=== PATIENT | female | born 1965 | race Caucasian/White ===

== ENCOUNTER 2023-10-30 21:19 | Emergency (ER) | payer OTHER, SELFPAY ==
[2023-10-30 21:39] VITALS: BP 172/87; PULSE 74; RESP 16; TEMP 36.4; O2SAT 98; BMI 24.0
--- OUTSIDE RECORDS SUMMARY | 2023-10-31 01:19 | XMS_ITS | Continuity of Care Document ---
Author Organization [facility] ter Address [address] [place] [id number]- Care Team Providers Care Front Man Name Role Phone Not on Staff, PCP Primary Care Physician Unavail able Encounter [facility] Date(s): 09/24/22 - 10/27/[address] [address]- Encounter Diagnosis Non-ST elevation (NSTEMI) myocardial infarction(Final) - Discharge Disposition: A-D/C Home Attending Physician: Shyann Mancia MD Admitting Physician: Shyann Mancia MD Referring Physician: Shyann Mancia MD Allergies, Adverse Reactions, Alerts Substance Reaction Severity Status morphine Active Peanuts Active Immunizations Given and Recorded Vaccine Date Status Refusal Reason influenza virus vaccine, inactivated 08/24/22 Give n influenza virus vaccine, inactivated 03/15/15 Yordan rded influenza virus vaccine, inactivated 05/09/13 Yordan rded influenza virus vaccine, inactivated 02/26/12 Yordan rded influenza virus vaccine, inactivated 1 04/06/08 Gi kanchan SARS-CoV-2 (COVID-19) mRNA-1273 vaccine 12/10/21 R ecorded SARS-CoV-2 (COVID-19) mRNA-1273 vaccine 12/06/20 R ecorded SARS-CoV-2 (COVID-19) mRNA-1273 vaccine 11/08/20 R ecorded tetanus/diphtheria/pertussis, acel(Tdap) 10/10/12 Recorded tetanus/diphtheria/pertussis, acel(Tdap) 2 04/06/08 Given 1Admin Note: VIS 01/12/08 GIVEN admin by Dev Iniguez RN 2Admin Note: VIS 12/30/05 given admin by Dev Iniguez RN [employer] Medications Aldactone 25 mg oral tablet 12.5 mg, 0.5, tablet, By Mouth, Daily, # 15 tablet, Refills 2, Tot. Refills 2, Maintenance, 08/26/22 11:52:00 EST, Route to Pharmacy Electronically, [facility]/pharmacy #[id number], Partial fill upon patient request if the prescription is for a schedule II opioid... Start Date: 08/26/22 Status: Ordered losartan 25 mg oral tablet 1 tablet = 25 mg, By Mouth, Daily, # 30 tablet, 0 Refills, Maintenance, 08/26/22 12:03:00 EST, Tablet, Partial fill upon patient request if the prescription is for a schedule II opioid drug. Start Date: 08/26/22 Status: Ordered metoprolol 100 mg oral tablet, extended release 100 mg, 1, tablet, By Mouth, Daily, # 30 tablet, Refills 2, Tot. Refills 2, Maintenance, 08/25/22 10:55:00 EST, Route to Pharmacy Electronically, [facility]/pharmacy #[id number], Partial fill upon patient requestif the prescription is for a schedule II opioid cat... Start Date: 08/25/22 Status: Ordered Problem List Condition Confirmation Course Effective Dates Status Health St atus Informant Bilateral tubal ligation Confirmed Active Depression Confirmed Active Dyspepsia, h. pylori +, rxed 2007 Confirmed Active Graves' disease Confirmed Active Headache Confirmed Active Hypertension Confirmed Active Weight loss Confirmed Active Deprecated Cardiac rehabilitation treatment plan Progress note and attainment of goals (narrative) * Marixa Osullivan RN: PERFORM, SIGN, VERIFY Event Display: Cardiac Rehab Note Authored Date: [id number] Patient: DENI VIGIL Age: 57 years Sex: Female : 1965 Associated Diagnoses: None Author: Marixa Osullivan RN Pt has not returned to cardiac rehab since her initial orientation on 09/24/22. Attempted to reach pton 10/07/22, left voicemail with the assistance of language line requesting return call advising we would be discharging from program if we did not hear back from her. Pt has not returned to cardiac rehab nor returned our call, will DC at this time. * Baljit Bravo MD: SIGN Baljit Bravo MD: SIGN, MODIFY Baljit Bravo MD: MODIFY Shyann Mancia MD: REVIEW, SIGN, VERIFY Event Display: Cardiac Rehab Note Authored Date: [id number] Patient: DENI VIGIL Age: 57 years Sex: Female : 1965 Associated Diagnoses: None Author: Allyson Pendleton Initial Assessment Diagnosis: NSTEMI/Takotsubo CM EF: 30-35% Date of Event: 08/21/22 HPI: 57yo female presented to ER with CP and SOB while walking up the stairs at home. Pt went to ERhaving +troponins. Cath report showed no coronary disease. Other Medical Conditions/Comorbidities/Surgeries: Depression, Graves Disease, headaches, fibromyalgia Cardiac Risk Factors: HTN [employer]: Dr. Debbi Mancia ([facility]) PCP: [facility] Complete: Yes Med Compliant: Yes Beta Ricky: [employer] Allergies: Peanuts, Morphine Sternal Click: N/A Incisions C/D/I: N/A Pain: 0/10 Fall in Past 6 Months? No Physical Limitations: Fibromyalgia Cardiac Rhythm: NSR Lung Sounds: CTA Edema : 0 Diabetes: No Type: _ Insulin: _ FBS: _ Risk Stratification: High Non-Adherence Score: 7 Advanced Directive: No DNR: _ MOLST: _ In CIS: _ Adv Dir Form Given: No Other/Notes: _ Plan: 1. Pt. has been enrolled in phase 2 cardiac rehab in which she will attend 2- 3x/week. We will monitor pt's HR/Rhythm as well as BPs. Any abnormalities will be reported to MD. Goals for this patient will be to increase exercise time/intensity and decrease overall CV RFs. 2. Pt. will be advised to follow a mediterranean diet and to limit sodium to no more than 2200mgday. Pt will be encouraged to attend our educational lectures regarding heart healthy eating as well asto meet with our clinical registered nurse. Educated patient on staying compliant with lipid and blood pressure medications if prescribed. 3. Pt. will be informed of our behavioral health resources offered at cardiac rehab. Pt. PHQ9 was 12. We will reassess PHQ9 after 30days and inform PCP if needed. Initial Exercise Prescription: Frequency: 2 days per week Intensity (Initial MET Level/RPE): 2.14METs Types of Exercise: Treadmill, Rec bike, Nustep Time of Exercise: 10-15min per machine; 30-45min per session Progression: 40% Increase from 3rd session MET level We look forward to working with Deni. Please contact us at [phone] if you have any questionsor concerns. Thank you Time spent with patient: 112min * Baljit Bravo MD R: PERFORM Event Display: Cardiac Rehab Note Authored Date: I have reviewed the patient's history, physical exam, and medications and agree with the treatment plan and exercise prescription as outlined in cardiac rehabilitation staff members note. Note * Event Display: Cardiac Rehab Telemetry Report Authored Date: Patient Care team information Care Team Personnel Name: Moni Modi Position: S RN Supv Member Role: Primary Care Nurse Name: Not on Staff, PCP Position: [facility] Physician (General Medicine) Member Role: PCP Care Team Related Persons Name: DENNYS CORREA Address: home [address] [place] [address] Name: STEVEN BAGLEY Address: [place] [address] Name: RAFI ESPINOZA
--- OUTSIDE RECORDS SUMMARY | 2023-10-31 01:19 | XMS_ITS | Continuity of Care Document ---
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[employer] Name Role Phone Not on Staff, PCP Primary Care Physician Unavail able Encounter [facility] Date(s): 08/20/22 - 08/26/[address] [id number] Encounter Diagnosis NSTEMI (non-ST elevated myocardial infarction)(Final) - 08/20/22 Hypertension(Final) - 08/20/22 Chest pain(Final) - 08/20/22 Discharge Disposition: A-D/C Home Attending Physician: Benitez MASSEY, Felipe Ramirez Admitting Physician: Margareth Antoine MD Referring Physician: Not on Staff, Referring MD Allergies, Adverse Reactions, Alerts Substance Reaction [...] 08/26/22 11:52:00 EST, Route to Pharmacy Electronically, [facility]/pharmacy #[id number], Partial fill upon patient request if [...] 08/25/22 10:55:00 EST, Route to Pharmacy Electronically, [facility]/pharmacy #[id number], Partial fill upon patient requestif the prescription is for a schedule II opioid cat... Start Date: 08/25/22 Status: Ordered metoprolol 50 mg oral tablet, extended release 50 mg, XL Tablet, By Mouth, 08/26/22 9:00:00 EST Start Date: 08/26/22 Stop Date: 08/26/22 Status: Completed valsartan 40 mg oral tablet 40 mg, Tablet, By Mouth, 08/26/22 9:00:00 EST Start Date: 08/26/22 Stop Date: 08/26/22 Status: Completed Problem List Condition Confirmation Course Effective Dates Status [facility] atus Informant Bilateral tubal ligation Confirmed Active Depression Confirmed Active Dyspepsia, h. pylori +, rxed 2007 Confirmed Active Graves' disease Confirmed Active Headache Confirmed Active Hypertension Confirmed Active Weight loss Confirmed Active Results Radiology Reports * Exam Date Time Procedure Performing Provider Status 08/20/22 5:[address] Angio Abdomen Tania Garcia; Auth (Verified) Notes: (CT Angio Abdomen) Reason For Exam: Renal artery dissection suspected;Other: RESULT: CT Angio Abdomen EXAMINATION: CT Angio Chest, CT Angio Abdomen INDICATION: Hx of Present Illness: chest pain sob, initially on 10 L NRB. Lethargic and diaphoretic. Pain started around 1430. Pain radiates to back. Given 324 mg ASA; Reason: Aortic disease, nontraumatic; Clinical Question(s): Aortic Dissection TECHNIQUE: An initial noncontrast CT of the chest was performed. Spiral CTA of the chest and abdomen was performed after rapid IV contrast administration without cardiac gating triggered by an ESTRELLITA onthe aorta. Images are formatted in multiple planes using 2-D multiplanar and 3-D maximum intensity projection. Obliqued images through the aortic root were reconstructed. 90 cc of Omnipaque 300 was administered intravenously. Weight-based protocol using automatic tube modulation was used to optimize exposure parameters. CTDIvol Body: 8.13 mGy, DLP Body: 396 mGy*cm. COMPARISONS: None. ANGIOGRAPHIC FINDINGS: No aortic dissection or aneurysm. Normal three vessel arch without branch vessel stenosis. Pulmonary arteries are normal in caliber. No evidence of central pulmonary embolism on this study performed without dedicated technique. Abdominal aorta: No aortic aneurysm or dissection. Celiac axis: Patent. Superior mesenteric artery: Patent. Right renal artery: Patent. Appears mildly beaded, for example see series 605 image 578. Accessory right lower pole renal artery. Left renal artery: Patent. Appears mildly beaded, for example see series 605 image 588. Inferior mesenteric artery: Patent. Visualized iliac arteries: Patent. NON-ANGIOGRAPHIC FINDINGS: Information Management Manager View Findings, Lines and Tubes: None. Trachea and Airways: Patent without evidence of tracheal or endobronchial lesion. Lungs and Pleura: Mild left basilar atelectasis. No effusion or pneumothorax. Mediastinum and otoniel: No mass or hematoma. No mediastinal or hilar lymphadenopathy. No esophageal abnormality. Heart: Mild cardiomegaly. No pericardial effusion. Chest Wall Soft Tissues: Normal. Diaphragm : No significant abnormality. Liver: Normal. Gallbladder: Absent consistent with prior cholecystectomy. Bile ducts: No biliary ductal dilation. Spleen: Normal. Pancreas: Normal. Adrenal glands: 1 cm benign left adrenal adenoma, not requiring further imaging evaluation. Kidneys and ureters: No hydronephrosis, stones, or suspicious masses. Stomach, small bowel, and large bowel: Visualized stomach and bowel are normal. Peritoneum and retroperitoneum: No ascites or pneumoperitoneum. No omental or mesenteric lesions. Lymph nodes: No enlarged lymph nodes. Abdominal wall: Unremarkable. Bones: No acute abnormality. IMPRESSION: 1. No aortic aneurysm or dissection. 2. Mild cardiomegaly. 3. Benign 1 cm left adrenal adenoma. No further imaging evaluation is recommended but consider biochemical workup to assess functional status. 4. Beaded appearance of the renal arteries, suggestive of fibromuscular dysplasia. WSN: [id number] Ordering Physician: Dennys Elias Dictated By: Conrado Villatoro MD Dictated Date/Time: 08/20/22 6:20 pm Reviewed By: Conrado Villatoro MD Signed By: Conrado Villatoro MD Signed Date/Time: 08/20/22 6:20 pm Transcribed By: BRAULIO Transcribed Date/Time: 08/20/22 6:11 pm * Exam Date Time Procedure Performing Provider Status 08/20/22 5:[address] Angio Chest [facility]elle [facility] (Verified) Notes: (CT Angio Chest) Reason For Exam: Aortic disease, nontraumatic;Other: RESULT: CT Angio Chest EXAMINATION: CT Angio Chest, CT Angio Abdomen INDICATION: Hx of Present Illness: chest pain sob, initially on 10 L NRB. Lethargic and diaphoretic. Pain started around 1430. Pain radiates to back. Given 324 mg ASA; Reason: Aortic disease, nontraumatic; Clinical Question(s): Aortic Dissection TECHNIQUE: An initial noncontrast CT of the chest was performed. Spiral CTA of the chest and abdomen was performed after rapid IV contrast administration without cardiac gating triggered by an [facility] aorta. Images are formatted in multiple planes using 2-D multiplanar and 3-D maximum intensity projection. Obliqued images through the aortic root were reconstructed. 90 cc of Omnipaque 300 was administered intravenously. Weight-based protocol using automatic tube modulation was used to optimize exposure parameters. CTDIvol Body: 8.13 mGy, DLP Body: 396 mGy*cm. COMPARISONS: None. ANGIOGRAPHIC FINDINGS: No aortic dissection or aneurysm. Normal three vessel arch without branch vessel stenosis. Pulmonary arteries are normal in caliber. No evidence of central pulmonary embolism on this study performed without dedicated technique. Abdominal aorta: No aortic aneurysm or dissection. Celiac axis: Patent. Superior mesenteric artery: Patent. Right renal artery: Patent. Appears mildly beaded, for example see series 605 image 578. Accessory right lower pole renal artery. Left renal artery: Patent. Appears mildly beaded, for example see series 605 image 588. Inferior mesenteric artery: Patent. Visualized iliac arteries: Patent. NON-ANGIOGRAPHIC FINDINGS: Information Management Manager View Findings, Lines and Tubes: None. Trachea and Airways: Patent without evidence of tracheal or endobronchial lesion. Lungs and Pleura: Mild left basilar atelectasis. No effusion or pneumothorax. Mediastinum and otoniel: No mass or hematoma. No mediastinal or hilar lymphadenopathy. No esophageal abnormality. Heart: Mild cardiomegaly. No pericardial effusion. Chest Wall Soft Tissues: Normal. Diaphragm : No significant abnormality. Liver: Normal. Gallbladder: Absent consistent with prior cholecystectomy. Bile ducts: No biliary ductal dilation. Spleen: Normal. Pancreas: Normal. Adrenal glands: 1 cm benign left adrenal adenoma, not requiring further imaging evaluation. Kidneys and ureters: No hydronephrosis, stones, or suspicious masses. Stomach, small bowel, and large bowel: Visualized stomach and bowel are normal. Peritoneum and retroperitoneum: No ascites or pneumoperitoneum. No omental or mesenteric lesions. Lymph nodes: No enlarged lymph nodes. Abdominal wall: Unremarkable. Bones: No acute abnormality. IMPRESSION: 1. No aortic aneurysm or dissection. 2. Mild cardiomegaly. 3. Benign 1 cm left adrenal adenoma. No further imaging evaluation is recommended but consider biochemical workup to assess functional status. 4. Beaded appearance of the renal arteries, suggestive of fibromuscular dysplasia. WSN: [id number] Ordering Physician: Dennys Elias Dictated By: Conrado Villatoro MD Dictated Date/Time: 08/20/22 6:20 pm Reviewed By: Conrado Villatoro MD Signed By: Conrado Villatoro MD Signed Date/Time: 08/20/22 6:20 pm Transcribed By: BRAULIO Transcribed Date/Time: 08/20/22 6:11 pm * Exam Date Time Procedure Performing Provider Status 08/20/22 4:11 PM Chest Portable Awilda Sarmiento; Auth (Verified) Notes: (Chest Portable) Reason For Exam: Chest Pain;Other: RESULT: Chest Portable Chest Portable Hx of Present Illness: hest pain sob, initially on 10 L NRB.lethargic and diaohoretic. pains tartedaround 1430. pain radiates to back. given 324 mg ASA; Reason: Other:; Chest Pain; Clinical Question(s): Other: COMPARISON: 09/28/2009. FINDINGS: LINES AND TUBES: None. LUNGS AND PLEURA: Clear lungs. Normal pulmonary vascularity. No pleural effusion. No pneumothorax. HEART, MEDIASTINUM AND OTONIEL: Prominent cardiomediastinal silhouette which may be partly due to magnification. Normal mediastinal and hilar contour. BONES AND SOFT TISSUES: No acute abnormality. IMPRESSION: No definite acute cardiopulmonary disease is seen. WSN: [id number] Ordering Physician: Sandhya Ling Dictated By: Hank Mars MD, V Dictated Date/Time: 08/20/22 4:29 pm Reviewed By: Hank Mars MD, V Signed By: Hank Mars MD, V Signed Date/Time: 08/20/22 4:29 pm Transcribed By: BRAULIO Transcribed Date/Time: 08/20/22 4:28 pm Vital Signs Most recent to oldest [Reference Range]: 1 2 3 Height 155 cm (08/26/22 9:45 AM) 155 cm (08/26/22 2:17 AM) 155 cm (08/25/22 7:35 PM) Weight 56.5 kg (08/26/22 2:17 AM) 57.1 kg (08/25/22 1:57 AM) 55.8 kg (08/24/22 2:22 AM) Oxygen Saturation [94-100 %] 98 % (08/26/22 9:45 AM) 98 % (08/26/22 2:17 AM) 100 % (08/25/22 7:35 PM) Pulse Rate [55-90 bpm] 78 bpm (08/26/22 9:45 AM) 78 bpm (08/26/22 8:47 AM) 72 bpm (08/26/22 2:17 AM) Body Mass Index [18.5-24.99 kg/m2] 23.52 kg/m2 (08/26/22 2:17 AM) 23.77 kg/m2 (08/25/22 1:57 AM) 23.23 kg/m2 (08/24/22 2:22 AM) Blood Pressure [90-138/55-84 mm Hg] 138/84mm Hg (08/26/22 9:45 AM) 138/84mm Hg (08/26/22 8:47 AM) 138/84mm Hg (08/26/22 8:47 AM) Respiratory Rate [16-30 br/min] 18 br/min (08/26/22 9:45 AM) 18 br/min (08/25/22 3:09 PM) 18 br/min (08/25/22 7:59 AM) Temperature [96.8-100.4 DegF] 98.0 DegF (08/26/22 9:45 AM) 98.9 DegF (08/26/22 2:17 AM) 98.1 DegF (08/25/22 7:35 PM) Liters per Minute 10 L/min (08/20/22 3:40 PM) Mode of Delivery (Oxygen) Room air (08/26/22 9:45 AM) Room air (08/26/22 2:17 AM) Room air (08/25/22 7:35 PM) Blood pressure sites Arm, right (08/26/22 9:45 AM) Arm, right (08/26/22 2:17 AM) Arm, left (08/25/22 7:35 PM) Temperature Route Oral (08/26/22 9:45 AM) Oral (08/26/22 2:17 AM) Oral (08/25/22 7:35 PM) Dry Weight 55.3 kg (08/22/22 3:18 AM) Weight Obtained Via Bed scale (08/26/22 2:17 AM) Bed scale (08/25/22 1:57 AM) Bed scale (08/24/22 2:22 AM) Dry Weight Obtained Via Standing scale (08/22/22 3:18 AM) Note * Mary Colmenares RN: PERFORM Event Display: Discharge/Transfer Note Hospital Authored Date: [id number] Nursing Discharge Note Entered On: 08/26/2022 13:41 EST Performed On: 08/26/2022 13:41 EST by Mary Colmenares RN Nursing Discharge Note 2 Discharge Time : 08/26/2022 13:30 EST Discharge Level of Care at Discharge : Home/Skilled Nursing/Foster Care Patient Left Unit Via : Wheelchair Patient Accompanied Off Unit with : Significant other DC Instructions Provided & Signed by Pt : Yes Patient Understands D/C Instructions : Yes Patient Instructions Discharge Signed : Yes Discharge Comments : PIV removed. discharge edu provided. A/Ox4. Ambulatory upon leaving, left withall belongings. Did Pt have Specialty Bed or Wound Vac : No Darrian MORENO, Mary - 08/26/2022 13:41 EST * Benitez MASSEY, Felipe Ramirez: MODIFY, PERFORM, MODIFY Event Display: Discharge/Transfer Note Hospital Authored Date: [id number] Patient: ??DENI VIGIL ? Age:??57 Years?Sex:??Female?:??1965?? Patient Information Discharge Location: Primary Care Physician: Not on Staff, PCP Admit Date/Time: 08/20/22 22:51 Discharge Disposition Discharge Disposition: Home: No Services Discharge Diagnosis Non-ST segment elevation W[place] Family history of premature CAD Non-ischemic cardiomyopathy Hypertension Diarrhea _ Discharge Medications Losartan (losartan 25 mg oral tablet)?1?tab(s)?25?Milligram?By Mouth?Daily Metoprolol (metoprolol 100 mg oral tablet, extended release)?100?Milligram?1?tablet?By Mouth?Daily Spironolactone (Aldactone 25 mg oral tablet)?12.5?Milligram?0.5?tablet?By Mouth?Daily ? Quality Measures Chest Pain, AMI Quality Measures:?ACEI or ARB for LVSD:??Active Home Medication for ARB ?Beta-Chan Prescribed at Discharge:??Beta-Chan Prescibed ? Medications Started metoprolol valsartan spironolactone Medications Discontinued chlorthalidone Doses Changed None Allergies Allergies ?(Active and Proposed Allergies Only) morphine? (Severity: Unknown severity, Onset: Unknown) Peanuts? (Severity: Unknown severity, Onset: Unknown) ? Hospital Course Deni Vigil is an extremely pleasant 57-year-old female. She came in initially with complaints of chest pain, now waiting for cardiac cath. ?? Non-ST segment elevation WV Family history of premature CAD Non-ischemic cardiomyopathy Hypertension - Troponins??x 4 were trended and have peaked??at 1425. - Echo: EF 30-35% overall. The apex and apical lateral hutson are akinetic. Grade I diastolic dysfunction - Hemoglobin A1c 4.9, LDL 85 - Coronary angiogram on 08/24 showed normal LMCA, normal LAD, normal LCx and normal RCA. Above-mentioned finding indicates that patient most likely has nonischemic cardiomyopathy, most likely stress induced cardiomyopathy/Takotsubo cardiomyopathy. - Plan: Stopped??aspirin and atorvastatin as it is non ischemic cardiomyopathy On discharge, metoprolol XL 100 mg daily, valsartan 40 mg daily and spironolactone 12.5 mg daily Cardiology will consider starting Entresto and Farxiga as outpatient Low Na diet FU with cardiology as outpatient ?? Diarrhea: Improved - Patient stated that she has issues with diarrhea and rosacea before as well. - diarrhea improved today, the last one was on 07/28 around midnight. ?? Upon assessment today, she is doing well, denies any chest pain, palpitations or SOB. No leg swelling. Medications and plan of care explained to the patient and her daughter in detail prior to discharge. Objective . Physical Exam General Appearance: Adult female. NAD. Cardiovascular: RRR S1 and S2 heard with no M/R/G. Respiratory: ??Breath sounds clear to auscultation bilaterally. No wheezing or crackles. GI: Soft. Nontender and nondistended. BS are present. MS: ??No edema or erythema in the lower extremities. Neuro: ??No slurred speech. ??Patient seen moving their upper and lower extremities independently. Psych: Alert and oriented x3. Appropriate and pleasant. [facility] Patient Education Titles Valsartan Oral Tablet?? Spironolactone Oral Tablet?? Dapagliflozin Oral Tablet?? Losartan Oral Tablet?? Having Cardiac Catheterization?? Discharge Instructions for Cardiac Catheterization?? Diet-Cardiac?? Heart Failure: Tracking Your Weight?? My Heart Failure Symptoms Chart?? Heart Failure: Know Your Baselines?? Heart Failure Discharge Instructions for Heart Failure?? Dapagliflozin Oral Tablet?? Metoprolol Extended Release Oral Capsule?? Losartan Oral Tablet?? Takotsubo Cardiomyopathy?? Takotsubo Cardiomyopathy?? Follow-Up Appointments Added Follow Up ?Time Frame ?Comments PCP Not on Staff?Within two weeks Lien MASSEY, Willi Felton?2 months?Cardiology office will call youfor an appointment. [facility] Cardiac [facility]hab?09/24/2022 [phone] Patient Instructions You were treated at [facility] for ?? Chest Pain Heart Enzyme elevation - You had a procedure called cardiac catheterization and it showed you don't have significant coronary artery disease. 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 - You were started on medications to help improve your heart function: metoprolol XL 100 mg daily valsartan 40 mg daily spironolactone 12.5 mg daily - Please limit your salt intake to less than 2 grams per day. - Please limit your water intake to about 2 liters per day. - You need repeat heart ultrasound (echocardiogram) in about 3 months to reassess your heart function. - Please follow with cardiology as outpatient. Post Discharge Care Diet: Cardiac diet Activity: OOB as Sheila ??With Assistance ??Minimize activity of the hand on the side of the procedure Code Status: ?? Full Resuscitation Discharge ?08/26/22 11:54:00 EST Discharge Prescriptions ?ePrescribed, ??08/26/22 11:54:00 EST ?ePrescribed, ??08/25/22 14:05:00 EST Results Discharge Labs BLOOD COUNT & DIFF WBC 8.2 k/mm3 ()?? 08/26/2022 02:27 RBC 4.66 m/mm3 ()?? 08/26/2022 02:27 Hgb 13.1 Gm/dL ()?? 08/26/2022 02:27 Hct 41.6 % ()?? 08/26/2022 02:27 MCV 89.3 femtoliters ()?? 08/26/2022 02:27 MCH 28.1 pg ()?? 08/26/2022 02:27 MCHC 31.5 g/dL (Low)?? 08/26/2022 02:27 Platelet Count 201 k/mm3 ()?? 08/26/2022 02:27 RDW-SD 40.1 femtoliters ()?? 08/26/2022 02:27 MPV 11.7 femtoliters ()?? 08/26/2022 02:27 Nucleated RBC (Automated) 0.0 #/100 WBC'S ()?? 08/26/2022 02:27 Abs. NRBC 0.0 k/mm3 ()?? 08/26/2022 02:27 Abs. Neut 5.4 k/mm3 ()?? 08/26/2022 02:27 Abs. Lymph 1.7 k/mm3 ()?? 08/26/2022 02:27 Abs. Wolfe 0.8 k/mm3 ()?? 08/26/2022 02:27 Abs. Eo 0.2 k/mm3 ()?? 08/26/2022 02:27 Abs. Baso 0.0 k/mm3 ()?? 08/26/2022 02:27 Neut % 66.3 % ()?? 08/26/2022 02:27 Lymph % 20.7 % ()?? 08/26/2022 02:27 Wolfe % 9.4 % ()?? 08/26/2022 02:27 Eos % 2.8 % ()?? 08/26/2022 02:27 Baso % 0.4 % ()?? 08/26/2022 02:27 Imm Gran 0.4 % ()?? 08/26/2022 02:27 Abs. Imm Gran 0.0 k/mm3 ()?? 08/26/2022 02:27 ?? CARDIAC Nt-Probnp 114 pg/mL ()?? 08/20/2022 15:55 High Sensitivity Troponin (HSTnT) 1241 ng/L (Critical)?? 08/21/2022 01:18 ?? CHEM GENERAL Sodium 139 mmol/L ()?? 08/26/2022 02:27 Potassium 3.9 mmol/L ()?? 08/26/2022 02:27 Chloride 104 mmol/L ()?? 08/26/2022 02:27 Bicarbonate Level 24 mmol/L ()?? 08/26/2022 02:27 Anion Gap 11 ()?? 08/26/2022 02:27 Glucose Level 85 mg/dL ()?? 08/24/2022 01:30 Hemoglobin A1C (Monitoring) 4.9 % ()?? 08/21/2022 04:15 BUN 11 mg/dL ()?? 08/26/2022 02:27 Creatinine-Blood 0.7 mg/dL ()?? 08/26/2022 02:27 Estimated GFR Creatinine 101 ML/MIN/1.73 M2 ()?? 08/26/2022 02:27 Calcium 9.1 mg/dL ()?? 08/24/2022 01:30 Phosphorus 2.7 mg/dL ()?? 08/21/2022 04:15 Magnesium 1.9 mg/dL ()?? 08/26/2022 02:27 Protein, Total 6.1 Gm/dL (Low)?? 08/21/2022 04:15 Albumin 3.8 Gm/dL ()?? 08/21/2022 04:15 AG Ratio 1.7 ()?? 08/21/2022 04:15 Alkaline Phosphatase 87 units/L ()?? 08/21/2022 04:15 Lipase 36 units/L ()?? 08/20/2022 15:55 AST (SGOT) 60 units/L (High)?? 08/21/2022 04:15 ALT (SGPT) 29 units/L ()?? 08/21/2022 04:15 Bilirubin, Total 0.6 mg/dL ()?? 08/21/2022 04:15 Bilirubin, Direct <0.2 mg/dL ()?? 08/20/2022 15:55 Bilirubin, Indirect Direct bilirubin is less than the measureable limit. Therefore, indirect mg/dL ()?? 08/20/2022 15:55 Lactate 1.4 mmol/L ()?? 08/21/2022 04:15 ? ENDOCRINE/TUMOR MARKER Serum Qual NEGATIVE mIU/mL ()?? 08/20/2022 15:55 ? LIPID STUDIES Cholesterol 171 mg/dL ()?? 08/21/2022 04:15 Triglycerides 69 mg/dL ()?? 08/21/2022 04:15 HDL Cholesterol 72 mg/dL ()?? 08/21/2022 04:15 LDL Cholesterol 85 mg/dL ()?? 08/21/2022 04:15 Non HDL Cholesterol 99 mg/dL ()?? 08/21/2022 04:15 ? MISC. CHEMISTRY Hold Green Top SPECIMEN DISCARDED AFTER 1 WEEK ()?? 08/21/2022 07:39 Hold Gel Top SPECIMEN DISCARDED AFTER 1 WEEK ()?? 08/24/2022 09:31 ?? SEROLOGY INF DISEASE C.difficile Toxin Negative. C.Difficile bacterial antigen and toxin not detected. A (N)?? 08/25/2022 15:30 ? VIROLOGY COVID-19 by RT-PCR NEGATIVE ()?? 08/20/2022 21:06 COVID-19 PCR Specimen Source NASAL ()?? 08/24/2022 05:52 COVID-19 PCR Result NEGATIVE ()?? 08/24/2022 05:52 ? 33??minutes spent on discharge * Mary Colmenares RN: PERFORM Event Display: Patient Education/Instruction Authored Date: Inpatient Adult Discharge Instructions [address] [id number] Name: DENI VIGIL : 1965 Visit: 08/20/2022 22:51:00 Current Date: 08/26/2022 12:19 Account: [id number] Inpatient Adult Discharge Instructions We would like to thank you for allowing us to assist you with your healthcare needs. The following includes patient education materials and information regarding your injury/illness. Our entire staffstrives to provide an excellent experience for our patients and their families. PLEASE ENSURE YOU FOLLOW-UP PER THE INSTRUCTIONS BELOW! ?? YOUR OPINION IS IMPORTANT TO US! Please complete the survey you may receive by mail or email. Your feedback will be used to make improvements to the healthcare experiences of our patients and their families. Surveys are administered by [employer] ?? If further treatment with your primary care physician or another doctor is recommended, it is important for you to keep the appointment. Call your primary care physician or return to the Emergency Department immediately if your condition worsens, fails to improve, or new symptoms develop. If you need to find a doctor, you can call [facility] for a referral at [phone] or toll free at [phone] ([phone]) or log in to [email or web address] ?? You can view and manage your care through the patient portal or by using a health care eleanor of your choosing. [employer] is a website that allows you to securely view your medical information including your hospital discharge summary, office visit summaries, medications and follow-up visits. You can also request appointments, renew medications, and request access to your medical information using a health care eleanor of your choosing, or just ask a question. You can enroll at [email or web address] or register during your next office visit. You have been discharged from [facility], Patient Care Unit: M5. If you have any questions regarding these instructions after you leave, please call us and we will be happy to assist you. [facility] Your Care Team Attending Physician Benitez MASSEY, Felipe Ramirez Consulting Providers Lien MASSEY, Willi MALDONADO, Tyree Salas MD, Trav Mancia MD, Shyann Discharging Providers Benitez MASSEY, Felipe Ramirez Reason for Admission chest pain/sob, initially on 10 L NRB.lethargic and diaohoretic. pains tarted around 1430. pain radiates to back. given 324 mg ASA Your Diagnosis NSTEMI (non-ST elevated myocardial infarction) Hypertension Chest pain Tests Performed Below is a partial list of the tests performed during your hospitalization. You may have had other tests and procedures not included in this list. Please discuss all test results with your provider. B Type Natriuretic Peptide Basic Metabolic Panel BUN C. difficile Rapid Toxin Assay Cardiac Lipid Panel CBC CBC w/ Differential Comprehensive Metabolic Panel COVID-19 (2019 Novel Coronavirus) PCR COVID-19 (Novel Coronavirus), Rapid PCR Creatinine Electrolytes Hemoglobin A1C (Monitoring) HEPATIC FUNCTION PANEL High??Sensitivity??Troponin T Hold Blue Top Tube HOLD GEL TUBE HOLD GREEN TUBE HOLD LAVENDER TUBE Lactate Level LIPASE Magnesium Level Phosphorus Level Serum Qualitative PTT Troponin T, High Sensitivity CT Angio Abdomen CT Angio Chest XR Chest Portable Primary Care Provider Not on Staff, PCP Advance Directive Health Care Proxy on File Yes - Health Care Proxy Discharge Vitals Temperature: 98 DegF Height: 155 cm Pulse Rate: 78 bpm Weight: 56.5 kg Respiratory Rate: 18 br/min Body Mass Index: 23.52 kg/m2 Systolic Blood Pressure: 138 mm Hg Body surface area: 1.56 Diastolic Blood Pressure: 84 mm Hg ?? Oxygen Saturation: 98 % ?? Studies Pending All tests and labs ordered during this hospital stay have been completed unless listed below. Please discuss all pending results with your provider listed above in these instructions. ?? Add On Lab Order GI Profile, Stool, PCR Hold Gel Top Tube (HOLD GEL TUBE) What to do next Instructions From Your Doctor You were treated at [facility] for ?? Chest Pain Heart Enzyme elevation - You had a procedure called cardiac catheterization and it showed you don't have significant coronary artery disease. 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 - You were started on medications to help improve your heart function: metoprolol XL 100 mg daily losartan 25 mg daily spironolactone 12.5 mg daily - Please limit your salt intake to less than 2 grams per day. - Please limit your water intake to about 2 liters per day. - You need repeat heart ultrasound (echocardiogram) in about 3 months to reassess your heart function. - Please follow with cardiology as outpatient. Discharge Orders Diet:??Cardiac diet Activity:??OOB as Sheila With Assistance Minimize activity of the hand on the side of the procedure Code Status:?? Full Resuscitation You Need to Schedule the Following Appointments Follow Up with??[facility] Cardiac Rehab When??09/24/2022 10:30 AM EDT Why: [phone] Where: [address] [facility], [address] [place], [place] Follow Up with??PCP Not on Staff When??Within Within two weeks Where: Follow Up with??Lien MASSEY, Willi Felton When??Within 2 months Why: Cardiology office will call you for an appointment. Where: [address] [place] [address] Drive [address] [facility] [place] [address]- Discharge Medications DENI VIGIL :1965 Visit Date:08/20/2022 Medications: Please continue your medications until treatment is completed or stopped by your provider. Medications not listed below should be discontinued. Discuss any questions related to medications with your provider. What How Much When Instructions Next Dose New Spironolactone (Aldactone 25 mg oral tablet) 0.5 tab(s) Oral Daily Refills: 2 Pickup at [facility]/pharmacy #[id number] 08/27 9a Changed Metoprolol (metoprolol 100 mg oral tablet, extended release) 1 tab(s) Oral Daily Pickup at [facility]/pharmacy #[id number] 08/27 9a Unchanged Losartan (losartan 25 mg oral tablet) 1 tab(s) Oral Daily 08/27 Pharmacy Information [facility]/pharmacy #[id number]: [address], [place] [phone] ?? What How Much When Comments Stop Taking Chlorthalidone (chlorthalidone 50 mg oral tablet) 1 tab(s) Oral Daily Stop Taking Ibuprofen (ibuprofen 600 mg oral tablet) 1 tab(s) Oral 3 times a day as needed for Pain , Moderate Duration: 5 Days Temperature Greater than 100.5 ?? Stop Taking Omeprazole (omeprazole 10 mg oral enteric coated capsule) 1 capsule Oral Daily Test Results Below is a partial list of the most recent Laboratory test results done prior to this discharge. You may have had other tests and procedures not included in this list. Please discuss all test resultswith your provider. B Type Natriuretic Peptide (08/20/2022) ???Nt-Probnp - 114 pg/mL Basic Metabolic Panel (08/24/2022) ???Sodium - 140 mmol/L???Potassium - 3.8 mmol/L???Chloride - 104 mmol/L???Bicarbonate Level - 27 mmol/L???Anion Gap - 9???Glucose Level - 85 mg/dL???BUN - 16 mg/dL???Creatinine-Blood - 0.7 mg/dL???Estimated GFR Creatinine - 101 ML/MIN/1.73 M2???Calcium - 9.1 mg/dL BUN (08/26/2022) ???BUN - 11 mg/dL C. difficile Rapid Toxin Assay (08/25/2022) ???C.difficile Toxin - Negative. C.Difficile bacterial antigen and toxin not detected. A Cardiac Lipid Panel (08/21/2022) ???Cholesterol - 171 mg/dL???Triglycerides - 69 mg/dL???HDL Cholesterol - 72 mg/dL???LDL Cholesterol - 85 mg/dL???Non HDL Cholesterol - 99 mg/dL CBC (08/25/2022) ???WBC - 8.5 k/mm3???RBC - 4.37 m/mm3???Hgb - 12.3 Gm/dL???Hct - 39.0 %???MCV - 89.2 femtoliters???MCH - 28.1 pg???MCHC - 31.5 g/dL???Platelet Count - 193 k/mm3???RDW-SD - 39.6 femtoliters???MPV - 11.7 femtoliters???Nucleated RBC (Automated) - 0.0 #/100 WBC'S???Abs. NRBC - 0.0 k/mm3 CBC w/ Differential (08/26/2022) ???WBC - 8.2 k/mm3???RBC - 4.66 m/mm3???Hgb - 13.1 Gm/dL???Hct - 41.6 %???MCV - 89.3 femtoliters???MCH - 28.1 pg???MCHC - 31.5 g/dL???Platelet Count - 201 k/mm3???RDW-SD - 40.1 femtoliters???MPV - 11.7 femtoliters???Nucleated RBC (Automated) - 0.0 #/100 WBC'S???Abs. NRBC - 0.0 k/mm3???Abs. Neut - 5.4 k/mm3???Abs. Lymph - 1.7 k/mm3???Abs. Wolfe - 0.8 k/mm3???Abs. Eo - 0.2 k/mm3???Abs. Baso - 0.0 k/mm3???Neut % - 66.3 %???Lymph % - 20.7 %???Wolfe % - 9.4 %???Eos % - 2.8 %???Baso % - 0.4 %???Imm Gran - 0.4 %???Abs. Imm Gran - 0.0 k/mm3 Comprehensive Metabolic Panel (08/21/2022) ???Sodium - 140 mmol/L???Potassium - 4.3 mmol/L???Chloride - 106 mmol/L???Bicarbonate Level - 23 mmol/L???Anion Gap - 11???Glucose Level - 103 mg/dL???BUN - 10 mg/dL???Creatinine-Blood - 0.5 mg/dL???Estimated GFR Creatinine - 107 ML/MIN/1.73 M2???Calcium - 9.3 mg/dL???Protein, Total - 6.1 Gm/dL???Al bumin - 3.8 Gm/dL???AG Ratio - 1.7???Alkaline Phosphatase - 87 units/L???AST (SGOT) - 60 units/L???ALT (SGPT) - 29 units/L???Bilirubin, Total - 0.6 mg/dL COVID-19 (2019 Novel Coronavirus) PCR (08/24/2022) ???COVID-19 PCR Specimen Source - NASAL???COVID-19 PCR Result - NEGATIVE COVID-19 (Novel Coronavirus), Rapid PCR (08/20/2022) ???COVID-19 by RT-PCR - NEGATIVE Creatinine (08/26/2022) ???Creatinine-Blood - 0.7 mg/dL???Estimated GFR Creatinine - 101 ML/MIN/1.73 M2 Electrolytes (08/26/2022) ???Sodium - 139 mmol/L???Potassium - 3.9 mmol/L???Chloride - 104 mmol/L???Bicarbonate Level - 24 mmol/L???Anion Gap - 11 Hemoglobin A1C (Monitoring) (08/21/2022) ???Hemoglobin A1C (Monitoring) - 4.9 % HEPATIC FUNCTION PANEL (08/20/2022) ???Protein, Total - 6.7 Gm/dL???Albumin - 4.2 Gm/dL???Alkaline Phosphatase - 93 units/L???AST (SGOT) - 29 units/L? ?ALT (SGPT) - 27 units/L? ?Bilirubin, Total - 0.5 mg/dL? ?Bilirubin, Direct - <0.2 mg/dL???Bilirubin, Indirect - Direct bilirubin is less than the measureable limit. Therefore, indirect High??Sensitivity??Troponin T (08/21/2022) ???High Sensitivity Troponin (HSTnT) - 1241 ng/L Hold Blue Top Tube (08/20/2022) ???Hold Blue Top - SPECIMEN DISCARDED AFTER 4 HOURS. HOLD GEL TUBE (08/24/2022) ???Hold Gel Top - SPECIMEN DISCARDED AFTER 1 WEEK HOLD GREEN TUBE (08/21/2022) ???Hold Green Top - SPECIMEN DISCARDED AFTER 1 WEEK HOLD LAVENDER TUBE (08/20/2022) ???Hold Lavender Top - SPECIMEN DISCARDED AFTER 24 HOURS. Lactate Level (08/21/2022) ???Lactate - 1.4 mmol/L LIPASE (08/20/2022) ???Lipase - 36 units/L Magnesium Level (08/26/2022) ???Magnesium - 1.9 mg/dL Phosphorus Level (08/21/2022) ???Phosphorus - 2.7 mg/dL Serum Qualitative (08/20/2022) ??? Serum Qual - NEGATIVE PTT (08/24/2022) ???APTT - 96.8 seconds Troponin T, High Sensitivity (08/20/2022) ???High Sensitivity Troponin (HSTnT) - 1405 ng/L Immunizations This Visit Given Vaccine Dateinfluenza virus vaccine, inactivated 08/24/2022 Allergies (NKA means No Known Allergies) Peanuts morphine Problems Active Problems??(7) Bilateral tubal ligation?? Depression?? Dyspepsia, h. pylori +, rxed 2007?? Graves' disease?? Headache?? Hypertension?? Weight loss?? Education Materials Below is the list of Educational Leaflet Providered with your Discharge Instructions. Valsartan Oral Tablet?? Spironolactone Oral Tablet?? Dapagliflozin Oral Tablet?? Losartan Oral Tablet?? Having Cardiac Catheterization?? Discharge Instructions for Cardiac Catheterization?? Diet-Cardiac?? Heart Failure: Tracking Your Weight?? My Heart Failure Symptoms Chart?? Heart Failure: Know Your Baselines?? Heart Failure Discharge Instructions for Heart Failure?? Dapagliflozin Oral Tablet?? Metoprolol Extended Release Oral Capsule?? Losartan Oral Tablet?? Takotsubo Cardiomyopathy?? Takotsubo Cardiomyopathy?? Valuables and Belongings I fully understand and agree that [facility] accepts no responsibility for all my personal property including clothing, toilet articles, radios, jewelry, dentures, hearing aids, rings, money, or any other property that is in my possession or is brought to me after admission. I understand certain valuables may be placed in a hospital safe for a short period of time. I understand that the hospital is not liable for loss or damage due to accident, fire, or other natural occurrence while said property is in the safe. I accept full responsibility for any personal property that I keep with me, and will not hold the hospital responsible in case of loss or disappearance. I acknowledge that i have been encouraged to send valuables and belongings home. ?? No Valuables/Belongings: No valuables/belongings present Review of Valuable and Belonging List: With patient Date for Pt to Sign Valuables/Belongings: 08/22/22 03:34:00 ?? Other Discharge Information ? Pulmonary Rehab Status?? Pulmonary Rehab Discharge Status?? Respiratory Rate: 18 br/min ? Cardiac Rehab Assessment?? Cardiac Rehab Inpatient Assessment?? Comments-Education: Marko BAILEY Comments-Exercise Activity: home activity, phase 2 referral Patient attending Phase II: Yes Phase II Site of Care: [address] [phone] Common Emergency Awareness Tips IS IT A STROKE? Act FAST and Check for these signs: FACE Does the face look uneven? ARM Does one arm drift down? SPEECH Does their speech sound strange? TIME Call at any sign of stroke ?? Heart Attack Signs Chest discomfort: Most heart attacks involve discomfort in the center of the chest and lasts more than a few minutes, or goes away and comes back. It can feel like uncomfortable pressure, squeezing, fullness or pain. Discomfort in upper body: Symptoms can include pain or discomfort in one or both arms, back, neck, jaw or stomach. Shortness of breath: With or without discomfort. Other signs: Breaking out in a cold sweat, nausea, or lightheaded. Remember, MINUTES DO MATTER. If you experience any of these heart attack warning signs, call to get immediate medical attention! ?? Smoking can increase your chances of developing chronic health problems and can cause harmful effects to other family members in your house. If you smoke, you are strongly encouraged to quit. Please call [facility] at [phone] or [phone] ([phone]) or log in to [email or web address] for referrals to smoking cessation programs. ?? The National Suicide Prevention Hotline is available 11/01 if you or someone you know needs to find a reason to keep living. By calling 0-350-687-TNT Crowd (7595) you'll be connected to a skilled, trained counselor at a crisis center in your area. INPATIENT DISCHARGE INSTRUCTIONS SIGNATURE PAGE DENI VIGIL Location:[facility] Registration Date and Time:08/20/2022 22:51 EST Primary Care Physician: Not on Staff, PCP I VIGILJAY GRAHAMN, have received the above patient education materials/instructions and have verbalized understanding. If ambulance or transport services are being used I further acknowledge being given a choice of service. ?? If you need to contact me, please call me at this number: . Patient/Teacher Counselor Name: Patient/Teacher Counselor Signature: Relationship to Patient: Witness Name/Signature: Date: * Mary Colmenraes RN: PERFORM Event Display: Patient Education Leaflets Authored Date: [id number] Metoprolol Extended Release Oral Tablet ?? [id number] Metoprolol Extended Release Oral Tablet Brands: Toprol Usos Hyun medicamento se usa para las siguientes afecciones: ??? ataque card??aco ??? angina ??? insuficiencia card??nancy ??? lacho presi??n arterial ??? prevenir migra??as ??? latidos card??acos irregulares ??? trastorno del movimiento ?? Instrucciones Trague el medicamento sin aplastarlo o masticarlo. Hyun medicamento se puede wandy con o sin alimentos. Es muy importante que se tome hyun medicamento cerca de la misma hora todos los d??as. Obtendr?? mejores resultados si lo hace as??. Mantenga el medicamento a temperatura ambiente, alejado lin y el calor. Es importante que contin??e tomando todas las dosis de hyun medicamento a la hora indicada aunque se sienta yovani. Si olvida wandy ananda dosis a tiempo, t??giselle davies pronto lo recuerde. Si es kim la hora de la dosis siguiente, no tome la dosis olvidada. Vuelva al horario normal. No tome dos dosis al mismo tiempo. Las interacciones con otros medicamentos pueden cambiar la forma en que act??an los medicamentos o aumentar el riesgo de presentar efectos secundarios. Informe a cristofer profesionales sanitarios acerca de todos los medicamentos que usa. [place] incluye medicamentos con y sin receta m??dica, vitaminas y medicamentos a base de hierbas. Hable con smith m??dico o farmac??utico antes de empezar o dejar de usar cualquier medicamento. Hyun medicamento puede ocasionar un nivel bajo de az??car en chandrakant. Consuma comidas regularmente yhaga ejercicio seg??n las indicaciones de smith m??dico. Informe a smith m??dico si tiene s??ntomas de nivel bajo de az??car en chandrakant, por ejemplo n??useas, sudoraci??n, piel fr??a, ritmo card??aco acelerado, hambre e irritabilidad. Si tiene diabetes, hyun medicamento puede ocultar algunos de los signos de bajo nivel de az??car enla chandrakant, akrl latidos r??pidos del coraz??n. Controle cristofer niveles de az??car en la chandrakant regularmente y est?? atento a otros signos de bajo nivel de az??car en la chandrakant. ?? Precauciones Informe a smith m??dico y a smith farmac??utico si alguna vez crook tenido ananda reacci??n al??rgica a un medicamento. En algunos pacientes con corazones d??maritza los s??ntomas podr??an empeorar. Si tiene problemas para respirar, aumenta de peso, o se le hinchan las piernas o los tobillos, informe a smith m??dico de inmediato. No use el medicamento m??s veces de lo indicado. Hyun medicamento puede causar mareos o desmayo, sobre todo despu??s de hacer ejercicio o en clima c??lido. Tenga cuidado cuando se pare o se siente con rapidez. Hyun medicamento puede afectar smith capacidad de mantenerse alerta o de reaccionar con rapidez. No maneje ni opere m??quinas hasta que sepa qu?? efecto le provocar?? hyun medicamento. Consulte a msith m??dico antes de beber alcohol mientras usa hyun medicamento. Informe a smith m??dico o farmac??utico si est?? o planea quedar embarazada, o si est?? amamantando. No comparta hyun medicamento con otras personas a quienes no se les recet??. ?? Efectos Secundarios La siguiente es ananda lista de algunos efectos secundarios comunes de hyun medicamento. Hable con el m??dico para saber qu?? debe hacer en annalise de tener estos u otros efectos secundarios. ??? diarrea ??? mareos o aturdimiento ??? falta de energ??a y cansancio ??? latidos lentos del coraz??n ??? baja presi??n arterial Llame al m??dico u obtenga atenci??n m??dica de inmediato si nota cualquiera de estos efectos secundarios m??s graves: ??? confusi??n ??? depresi??n o sentimiento de tristeza ??? desmayo ??? palidez o coloraci??n lewis de la piel, los labios o las u??as ??? falta de aliento ??? cansancio o debilidad, extra??o o sin causa aparente ??? aumento de peso repentino o inexplicado Algunas personas podr??an tener reacciones al??rgicas a hyun medicamento. Entre los s??ntomas pueden incluirse: dificultad para respirar, erupci??n en la piel, comez??n, hinchaz??n o mareos intensos.Si nota algunos de estos s??ntomas, busque asistencia m??dica r??pidamente. ?? Extra Hable con smith m??dico, enfermero o farmac??utico si tiene alguna pregunta acerca de hyun medicamento. ?? [email or web address] NOTA IMPORTANTE: En hyun documento hay ananda explicaci??n breve sobre c??mo usar el medicamento, perono incluye todo lo que hay que saber acerca del medicamento. Smith m??dico o smith farmac??utico podr??a suministrarle otros documentos acerca de smith medicamento. Comun??quese con ellos si tiene alguna pregunta. Siga siempre cristofer consejos. Ananda descripci??n m??s completa de hyun medicamento est?? disponibleen ingl??s. [place] hyun c??digo en smith tel??fono inteligente o en smith tableta, o use la direcci??n web que aparece a continuaci??n. Tambi??n puede pedirle a smith farmac??utico ananda copia impresa. Si tiene alguna pregunta, h??gasela a smith farmac??utico. La exhibici??n y el uso de esta informaci??n sobre f??rmacos est?? sujeta a los T??rminos de Uso. Copyright(c) 2022 [employer]. ?? [id number] [employer]. All rights reserved. This information is not intended as a substitute for professional medical care. Always follow your healthcare professional's instructions. ?? * Felipe Marquis MD: PERFORM Event Display: Patient Education Leaflets Authored Date: [id number] Valsartan Oral Tablet ?? [id number] Valsartan Oral Tablet Brands: Diovan Usos Hyun medicamento se usa para las siguientes afecciones: ??? insuficiencia card??nancy ??? lacho presi??n arterial ??? complicaciones de la diabetes ?? Instrucciones Hyun medicamento se puede wandy con o sin alimentos. Es muy importante que se tome hyun medicamento cerca de la misma hora todos los d??as. Obtendr?? mejores resultados si lo hace as??. Mantenga el medicamento a temperatura ambiente, alejado lin y el calor. Hable con smith m??dico antes de consumir alimentos con grandes cantidades de potasio. El potasio a menudo se encuentra en substitutos de la heather. Es posible que smith m??dico quiera que usted reduzca la cantidad que consume de estos alimentos. Es importante que contin??e tomando todas las dosis de hyun medicamento a la hora indicada aunque se sienta yovani. Si olvida wandy ananda dosis a tiempo, t??giselle davies pronto lo recuerde. Si es kim la hora de la dosis siguiente, no tome la dosis olvidada. Vuelva al horario normal. No tome dos dosis al mismo tiempo. Informe a smith m??dico y a smith farmac??utico acerca de todos los medicamentos que usa. [place] incluye medicamentos con y sin receta m??dica, vitaminas y medicamentos a base de hierbas. ?? Precauciones Informe a smith m??dico y a smith farmac??utico si alguna vez crook tenido ananda reacci??n al??rgica a un medicamento. No use el medicamento m??s veces de lo indicado. Hyun medicamento puede causar mareos o desmayo, sobre todo despu??s de hacer ejercicio o en clima c??lido. Tenga cuidado cuando se pare o se siente con rapidez. Hyun medicamento puede afectar smith capacidad de mantenerse alerta o de reaccionar con rapidez. No maneje ni opere m??quinas hasta que sepa qu?? efecto le provocar?? hyun medicamento. Consulte a smith m??dico antes de beber alcohol mientras usa hyun medicamento. Llame al m??dico si observa alg??n cambio en la cantidad de orina o si ??sta es oscura. Se desconoce si hyun medicamento pasa a la leche materna. Consulte a smith m??dico antes de amamantar. Hyun medicamento puede causar da??os a un beb?? en el ??tero. Si queda embarazada mientras usa estemedicamento, av??luna a smith m??dico de inmediato. El m??dico puede cambiar el medicamento por otro diferente. Llame al m??dico de inmediato si se le hinchan las chemo, la gabriele, los labios, los ojos, la garganta o la lengua. No empiece ni deje de wandy otros medicamentos sin hablar inocencio con el m??dico o farmac??utico. No comparta hyun medicamento con otras personas a quienes no se les recet??. ?? Efectos Secundarios La siguiente es ananda lista de algunos efectos secundarios comunes de hyun medicamento. Hable con el m??dico para saber qu?? debe hacer en annalise de tener estos u otros efectos secundarios. ??? mareos Llame al m??dico u obtenga atenci??n m??dica de inmediato si nota cualquiera de estos efectos secundarios m??s graves: ??? hinchaz??n de la gabriele, lengua o garganta ??? baja presi??n arterial Algunas personas podr??an tener reacciones al??rgicas a hyun medicamento. Entre los s??ntomas pueden incluirse: dificultad para respirar, erupci??n en la piel, comez??n, hinchaz??n o mareos intensos.Si nota algunos de estos s??ntomas, busque asistencia m??dica r??pidamente. ?? Extra Hable con smith m??dico, enfermero o farmac??utico si tiene alguna pregunta acerca de hyun medicamento. ?? [email or web address] NOTA IMPORTANTE: En hyun documento hay ananda explicaci??n breve sobre c??mo usar el medicamento, perono incluye todo lo que hay que saber acerca del medicamento. Smith m??dico o smith farmac??utico podr??a suministrarle otros documentos acerca de smith medicamento. Comun??quese con ellos si tiene alguna pregunta. Siga siempre cristofer consejos. Ananda descripci??n m??s completa de hyun medicamento est?? disponibleen ingl??s. [place] hyun c??digo en smith tel??fono inteligente o en smith tableta, o use la direcci??n web que aparece a continuaci??n. Tambi??n puede pedirle a smith farmac??utico ananda copia impresa. Si tiene alguna pregunta, h??gasela a smith farmac??utico. La exhibici??n y el uso de esta informaci??n sobre f??rmacos est?? sujeta a los T??rminos de Uso. Copyright(c) 2022 [employer]. ?? [employer]. All rights reserved. This information is not intended as a substitute for professional medical care. Always follow your healthcare professional's instructions. ?? * Benitez MASSEY, Felipe Ramirez: PERFORM Event Display: Patient Education Leaflets Authored Date: [id number] Spironolactone Oral Tablet ?? [id number] Spironolactone Oral Tablet Brands: Aldactone Usos Hyun medicamento se usa para las siguientes afecciones: ??? hinchaz??n ??? insuficiencia card??nancy ??? lacho presi??n arterial ??? trastorno hormonal ??? trastorno de la piel ?? Instrucciones Hyun medicamento se puede wandy con o sin alimentos. No tome la ??ltima dosis del d??a entre 4 y 6 horas antes de la hora de acostarse. Mantenga el medicamento a temperatura ambiente, alejado lin y el calor. Hyun medicamento lo sierra?? orinar m??s. Si tiene dificultad para orinar, av??luna a smith m??dico. Hable con smith m??dico antes de consumir alimentos con grandes cantidades de potasio. El potasio a menudo se encuentra en substitutos de la heather. Es posible que smith m??dico quiera que usted reduzca la cantidad que consume de estos alimentos. Es importante que contin??e tomando todas las dosis de hyun medicamento a la hora indicada aunque se sienta yovani. Si olvida wandy ananda dosis a tiempo, t??giselle davies pronto lo recuerde. Si es kim la hora de la dosis siguiente, no tome la dosis olvidada. Vuelva al horario normal. No tome dos dosis al mismo tiempo. Informe a smith m??dico y a smith farmac??utico acerca de todos los medicamentos que usa. [place] incluye medicamentos con y sin receta m??dica, vitaminas y medicamentos a base de hierbas. No deje de usar hyun medicamento repentinamente. Consulte al m??dico antes de dejar de usarlo. Es muy importante que siga las instrucciones de smith m??dico para todos los an??lisis de chandrakant. ?? Precauciones Informe a smith m??dico y a smith farmac??utico si alguna vez crook tenido ananda reacci??n al??rgica a un medicamento. No use el medicamento m??s veces de lo indicado. Hyun medicamento puede afectar smith capacidad de mantenerse alerta o de reaccionar con rapidez. No maneje ni opere m??quinas hasta que sepa qu?? efecto le provocar?? hyun medicamento. Informe a smith m??dico o farmac??utico si est?? o planea quedar embarazada, o si est?? amamantando. No empiece ni deje de wandy otros medicamentos sin hablar inocencio con el m??dico o farmac??utico. No comparta hyun medicamento con otras personas a quienes no se les recet??. ?? Efectos Secundarios La siguiente es ananda lista de algunos efectos secundarios comunes de hyun medicamento. Hable con el m??dico para saber qu?? debe hacer en annalise de tener estos u otros efectos secundarios. ??? diarrea ??? somnolencia o sedaci??n ??? chaka de mega ??? indigesti??n estomacal o dolor abdominal ??? aumento en la frecuencia urinaria ??? v??mitos Llame al m??dico u obtenga atenci??n m??dica de inmediato si nota cualquiera de estos efectos secundarios m??s graves: ??? dolor en el seno o hinchaz??n ??? falta de energ??a y cansancio ??? baja presi??n arterial ??? impotencia ??? problemas de los ri??ones Algunas personas podr??an tener reacciones al??rgicas a hyun medicamento. Entre los s??ntomas pueden incluirse: dificultad para respirar, erupci??n en la piel, comez??n, hinchaz??n o mareos intensos.Si nota algunos de estos s??ntomas, busque asistencia m??dica r??pidamente. ?? Extra Hable con smith m??dico, enfermero o farmac??utico si tiene alguna pregunta acerca de hyun medicamento. ?? [email or web address] NOTA IMPORTANTE: En hyun documento hay ananda explicaci??n breve sobre c??mo usar el medicamento, perono incluye todo lo que hay que saber acerca del medicamento. Smith m??dico o smith farmac??utico podr??a suministrarle otros documentos acerca de smith medicamento. Comun??quese con ellos si tiene alguna pregunta. Siga siempre cristofer consejos. Ananda descripci??n m??s completa de hyun medicamento est?? disponibleen ingl??s. Escanee hyun c??digo en smith tel??fono inteligente o en smith tableta, o use la direcci??n web que aparece a continuaci??n. Tambi??n puede pedirle a smith farmac??utico ananda copia impresa. Si tiene alguna pregunta, h??gasela a smith farmac??utico. La exhibici??n y el uso de esta informaci??n sobre f??rmacos est?? sujeta a los T??rminos de Uso. Copyright(c) 2022 [employer]. ?? 9066-8287 [employer]. All rights reserved. This information is not intended as a substitute for professional medical care. Always follow your healthcare professional's instructions. ?? * Event Display: Hemodynamic Procedure Report Authored Date: [id number] * Reinier Mckeon RN: PERFORM Event Display: Patient Education/Instruction Authored Date: [id number] Inpatient Adult Discharge Instructions [place] [id number] Name: DENI VIGIL : 1965 Visit: 08/20/2022 22:51:00 Current Date: 08/25/2022 14:06 Account: [id number] Inpatient Adult Discharge Instructions We would like to thank you for allowing us to assist you with your healthcare needs. The following includes patient education materials and information regarding your injury/illness. Our entire staffstrives to provide an excellent experience for our patients and their families. PLEASE ENSURE YOU FOLLOW-UP PER THE INSTRUCTIONS BELOW! ?? YOUR OPINION IS IMPORTANT TO US! Please complete the survey you may receive by mail or email. Your feedback will be used to make improvements to the healthcare experiences of our patients and their families. Surveys are administered by [employer] ?? If further treatment with your primary care physician or another doctor is recommended, it is important for you to keep the appointment. Call your primary care physician or return to the Emergency Department immediately if your condition worsens, fails to improve, or new symptoms develop. If you need to find a doctor, you can call [facility] Klout for a referral at [phone] or toll free at [phone] or log in to [email or web address].. ?? You can view and manage your care through the patient portal or by using a health care eleanor of your choosing. [employer] is a website that allows you to securely view your medical information including your hospital discharge summary, office visit summaries, medications and follow-up visits. You can also request appointments, renew medications, and request access to your medical information using a health care eleanor of your choosing, or just ask a question. You can enroll at [email or web address] or register during your next office visit. You have been discharged from [facility], Patient Care Unit: M5. If you have any questions regarding these instructions after you leave, please call us and we will be happy to assist you. [facility] Your Care Team Attending Physician Benitez MASSEY, Felipe Ramirez Consulting Providers Anabella MALDONADO, Tyree Salas MD, Trav Mancia MD, Shyann Discharging Providers Benitez MASSEY, Felipe Ramirez Reason for Admission chest pain/sob, initially on 10 L NRB.lethargic and diaohoretic. pains tarted around 1430. pain radiates to back. given 324 mg ASA Your Diagnosis NSTEMI (non-ST elevated myocardial infarction) Hypertension Chest pain Tests Performed Below is a partial list of the tests performed during your hospitalization. You may have had other tests and procedures not included in this list. Please discuss all test results with your provider. B Type Natriuretic Peptide Basic Metabolic Panel BUN Cardiac Lipid Panel CBC CBC w/ Differential Comprehensive Metabolic Panel COVID-19 (2019 Novel Coronavirus) PCR COVID-19 (Novel Coronavirus), Rapid PCR Creatinine Electrolytes Hemoglobin A1C (Monitoring) HEPATIC FUNCTION PANEL High??Sensitivity??Troponin T Hold Blue Top Tube HOLD GEL TUBE HOLD GREEN TUBE HOLD LAVENDER TUBE Lactate Level LIPASE Magnesium Level Phosphorus Level Serum Qualitative PTT Troponin T, High Sensitivity CT Angio Abdomen CT Angio Chest XR Chest Portable Primary Care Provider Not on Staff, PCP Advance Directive Health Care Proxy on File No Patient refuses to discuss Discharge Vitals Temperature: 98.1 DegF Height: 155 cm Pulse Rate: 78 bpm Weight: 57.1 kg Respiratory Rate: 18 br/min Body Mass Index: 23.77 kg/m2 Systolic Blood Pressure: 124 mm Hg Body surface area: 1.57 Diastolic Blood Pressure: 58 mm Hg ?? Oxygen Saturation: 100 % ?? Studies Pending All tests and labs ordered during this hospital stay have been completed unless listed below. Please discuss all pending results with your provider listed above in these instructions. ?? Add On Lab Order Hold Gel Top Tube (HOLD GEL TUBE) What to do next Instructions From Your Doctor Discharge Orders Diet:??Cardiac diet Activity:??OOB as Sheila With Assistance Minimize activity of the hand on the side of the procedure Code Status:?? Full Resuscitation You Need to Schedule the Following Appointments Follow Up with??[facility] Cardiac Rehab When??09/24/2022 10:30 AM EDT Why: [phone] Where: [address] [facility] [facility] [address], [address] [place], [place] Follow Up with??PCP Not on Staff When??Within Within two weeks Where: Follow Up with??Willi Emmanuel MD When??Within 2 months Why: Cardiology office will call you for an appointment. Where: [address] [place] [address] [address] [facility] [place] [address]- Discharge Medications DENI VIGIL :1965 Visit Date:08/20/2022 Medications: Please continue your medications until treatment is completed or stopped by your provider. Medications not listed below should be discontinued. Discuss any questions related to medications with your provider. What How Much When Instructions Next Dose New dapagliflozin (dapagliflozin 5 mg oral tablet) 1 tab(s) Oral Daily Refills: 2 Pickup at [facility]/pharmacy #[id number] tomorrow 08/26/2022 New Losartan (losartan 25 mg oral tablet) 1 tab(s) Oral Daily at Bedtime Duration: 30 Days Refills: 2 Pickup at [facility]/pharmacy #[id number] tonight 08/25/2022 Changed Metoprolol (metoprolol 100 mg oral tablet, extended release) 1 tab(s) Oral Daily Pickup at [facility]/pharmacy #[id number] tomorrow 08/26/2022 Pharmacy Information [facility]/pharmacy #[id number]: [address], [place] [phone] ?? What How Much When Comments Stop Taking Ibuprofen (ibuprofen 600 mg oral tablet) 1 tab(s) Oral 3 times a day as needed for Pain , Moderate Duration: 5 Days Temperature Greater than 100.5 ?? Stop Taking Omeprazole (omeprazole 10 mg oral enteric coated capsule) 1 capsule Oral Daily Test Results Below is a partial list of the most recent Laboratory test results done prior to this discharge. You may have had other tests and procedures not included in this list. Please discuss all test resultswith your provider. B Type Natriuretic Peptide (08/20/2022) ???Nt-Probnp - 114 pg/mL Basic Metabolic Panel (08/24/2022) ???Sodium - 140 mmol/L???Potassium - 3.8 mmol/L???Chloride - 104 mmol/L???Bicarbonate Level - 27 mmol/L???Anion Gap - 9???Glucose Level - 85 mg/dL???BUN - 16 mg/dL???Creatinine-Blood - 0.7 mg/dL???Estimated GFR Creatinine - 101 ML/MIN/1.73 M2???Calcium - 9.1 mg/dL BUN (08/25/2022) ???BUN - 13 mg/dL Cardiac Lipid Panel (08/21/2022) ???Cholesterol - 171 mg/dL???Triglycerides - 69 mg/dL???HDL Cholesterol - 72 mg/dL???LDL Cholesterol - 85 mg/dL???Non HDL Cholesterol - 99 mg/dL CBC (08/25/2022) ???WBC - 8.5 k/mm3???RBC - 4.37 m/mm3???Hgb - 12.3 Gm/dL???Hct - 39.0 %???MCV - 89.2 femtoliters???MCH - 28.1 pg???MCHC - 31.5 g/dL???Platelet Count - 193 k/mm3???RDW-SD - 39.6 femtoliters???MPV - 11.7 femtoliters???Nucleated RBC (Automated) - 0.0 #/100 WBC'S???Abs. NRBC - 0.0 k/mm3 CBC w/ Differential (08/21/2022) ???WBC - 14.0 k/mm3???RBC - 4.44 m/mm3???Hgb - 12.7 Gm/dL???Hct - 39.8 %???MCV - 89.6 femtoliters???MCH - 28.6 pg???MCHC - 31.9 g/dL???Platelet Count - 196 k/mm3???RDW-SD - 39.7 femtoliters???MPV - 11.2 femtoliters???Nucleated RBC (Automated) - 0.0 #/100 WBC'S???Abs. NRBC - 0.0 k/mm3???Abs. Neut - 11.1 k/mm3???Abs. Lymph - 1.7 k/mm3???Abs. Wolfe - 1.1 k/mm3???Abs. Eo - 0.0 k/mm3???Abs. Baso - 0.1 k/mm3???Neut % - 79.3 %???Lymph % - 12.1 %???Wolfe % - 7.6 %???Eos % - 0.2 %???Baso % - 0.4 %???Imm Gran - 0.4 %???Abs. Imm Gran - 0.1 k/mm3 Comprehensive Metabolic Panel (08/21/2022) ???Sodium - 140 mmol/L???Potassium - 4.3 mmol/L???Chloride - 106 mmol/L???Bicarbonate Level - 23 mmol/L???Anion Gap - 11???Glucose Level - 103 mg/dL???BUN - 10 mg/dL???Creatinine-Blood - 0.5 mg/dL???Estimated GFR Creatinine - 107 ML/MIN/1.73 M2???Calcium - 9.3 mg/dL???Protein, Total - 6.1 Gm/dL???Al bumin - 3.8 Gm/dL???AG Ratio - 1.7???Alkaline Phosphatase - 87 units/L???AST (SGOT) - 60 units/L???ALT (SGPT) - 29 units/L???Bilirubin, Total - 0.6 mg/dL COVID-19 (2019 Novel Coronavirus) PCR (08/24/2022) ???COVID-19 PCR Specimen Source - NASAL???COVID-19 PCR Result - NEGATIVE COVID-19 (Novel Coronavirus), Rapid PCR (08/20/2022) ???COVID-19 by RT-PCR - NEGATIVE Creatinine (08/25/2022) ???Creatinine-Blood - 0.6 mg/dL???Estimated GFR Creatinine - 103 ML/MIN/1.73 M2 Electrolytes (08/25/2022) ???Sodium - 138 mmol/L???Potassium - 4.2 mmol/L???Chloride - 104 mmol/L???Bicarbonate Level - 26 mmol/L???Anion Gap - 8 Hemoglobin A1C (Monitoring) (08/21/2022) ???Hemoglobin A1C (Monitoring) - 4.9 % HEPATIC FUNCTION PANEL (08/20/2022) ???Protein, Total - 6.7 Gm/dL???Albumin - 4.2 Gm/dL???Alkaline Phosphatase - 93 units/L???AST (SGOT) - 29 units/L? ?ALT (SGPT) - 27 units/L? ?Bilirubin, Total - 0.5 mg/dL? ?Bilirubin, Direct - <0.2 mg/dL???Bilirubin, Indirect - Direct bilirubin is less than the measureable limit. Therefore, indirect High??Sensitivity??Troponin T (08/21/2022) ???High Sensitivity Troponin (HSTnT) - 1241 ng/L Hold Blue Top Tube (08/20/2022) ???Hold Blue Top - SPECIMEN DISCARDED AFTER 4 HOURS. HOLD GEL TUBE (08/24/2022) ???Hold Gel Top - SPECIMEN DISCARDED AFTER 1 WEEK HOLD GREEN TUBE (08/21/2022) ???Hold Green Top - SPECIMEN DISCARDED AFTER 1 WEEK HOLD LAVENDER TUBE (08/20/2022) ???Hold Lavender Top - SPECIMEN DISCARDED AFTER 24 HOURS. Lactate Level (08/21/2022) ???Lactate - 1.4 mmol/L LIPASE (08/20/2022) ???Lipase - 36 units/L Magnesium Level (08/25/2022) ???Magnesium - 1.8 mg/dL Phosphorus Level (08/21/2022) ???Phosphorus - 2.7 mg/dL Serum Qualitative (08/20/2022) ??? Serum Qual - NEGATIVE PTT (08/24/2022) ???APTT - 96.8 seconds Troponin T, High Sensitivity (08/20/2022) ???High Sensitivity Troponin (HSTnT) - 1405 ng/L Immunizations This Visit Given Vaccine Dateinfluenza virus vaccine, inactivated 08/24/2022 Allergies (NKA means No Known Allergies) Peanuts morphine Problems Active Problems??(7) Bilateral tubal ligation?? Depression?? Dyspepsia, h. pylori +, rxed 2007?? Graves' disease?? Headache?? Hypertension?? Weight loss?? Education Materials Below is the list of Educational Leaflet Providered with your Discharge Instructions. Metoprolol Extended Release Oral Capsule?? Losartan Oral Tablet?? Takotsubo Cardiomyopathy?? Takotsubo Cardiomyopathy?? Valuables and Belongings I fully understand and agree that [facility] accepts no responsibility for all my personal property including clothing, toilet articles, radios, jewelry, dentures, hearing aids, rings, money, or any other property that is in my possession or is brought to me after admission. I understand certain valuables may be placed in a hospital safe for a short period of time. I understand that the hospital is not liable for loss or damage due to accident, fire, or other natural occurrence while said property is in the safe. I accept full responsibility for any personal property that I keep with me, and will not hold the hospital responsible in case of loss or disappearance. I acknowledge that i have been encouraged to send valuables and belongings home. ?? No Valuables/Belongings: No valuables/belongings present Review of Valuable and Belonging List: With patient Date for Pt to Sign Valuables/Belongings: 08/22/22 03:34:00 ?? Other Discharge Information ? Pulmonary Rehab Status?? Pulmonary Rehab Discharge Status?? Respiratory Rate: 18 br/min ? Cardiac Rehab Assessment?? Cardiac Rehab Inpatient Assessment?? Comments-Education: Marko BAILEY Comments-Exercise Activity: home activity, phase 2 referral Patient attending Phase II: Yes Phase II Site of Care: [address] [phone] Common Emergency Awareness Tips IS IT A STROKE? Act FAST and Check for these signs: FACE Does the face look uneven? ARM Does one arm drift down? SPEECH Does their speech sound strange? TIME Call at any sign of stroke ?? Heart Attack Signs Chest discomfort: Most heart attacks involve discomfort in the center of the chest and lasts more than a few minutes, or goes away and comes back. It can feel like uncomfortable pressure, squeezing, fullness or pain. Discomfort in upper body: Symptoms can include pain or discomfort in one or both arms, back, neck, jaw or stomach. Shortness of breath: With or without discomfort. Other signs: Breaking out in a cold sweat, nausea, or lightheaded. Remember, MINUTES DO MATTER. If you experience any of these heart attack warning signs, call to get immediate medical attention! ?? Smoking can increase your chances of developing chronic health problems and can cause harmful effects to other family members in your house. If you smoke, you are strongly encouraged to quit. Please call [facility] [employer] Link at [phone] or [phone]) or log in to [email or web address] for referrals to smoking cessation programs. ?? The National Suicide Prevention Hotline is available 11/01 if you or someone you know needs to find a reason to keep living. By calling 9-987-646-TNT Crowd (8398) you'll be connected to a skilled, trained counselor at a crisis center in your area. INPATIENT DISCHARGE INSTRUCTIONS SIGNATURE PAGE DENI VIGIL Location:[facility] Registration Date and Time:08/20/2022 22:51 EST Primary Care Physician: Not on Staff, PCP DENI NAQVI, have received the above patient education materials/instructions and have verbalized understanding. If ambulance or transport services are being used I further acknowledge being given a choice of service. ?? If you need to contact me, please call me at this number: . Patient/Teacher Counselor Name: Patient/Teacher Counselor Signature: Relationship to Patient: Witness Name/Signature: Date: * Liu MORENO, Itzel Negrete: PERFORM, SIGN, VERIFY Event Display: Patient Education Handout Authored Date: * Event Display: Cardiac Rhythm Strips Authored Date: * Event Display: Cardiac Rhythm Strips Authored Date: Admission evaluation note * Raheem Albarran MD: PERFORM, MODIFY, MODIFY Event Display: Admission Note Authored Date: Patient: ??DENI VIGIL ? Age:??57 Years?Sex:??Female?:??1965?? Chief Complaint/Reason for Consultation chest pain/sob, initially on 10 L NRB.lethargic and diaohoretic. pains tarted around 1430. pain radiates to back. given 324 mg ASA History of Present Illness Deni Vigil is an extremely pleasant 57-year-old female who is primarily Colombian-speaking.?? Certified in person Colombian speaking station engineer main line was used during my interview.?? She came in initially with complaints of chest pain.?? She has history of hypertension.?? History of hypertension, father had [place] in mid 40s.?? Patient has chronic abdominal symptoms.?? Patient says that her chest pressure was sudden in onset located substernally around 2:45 PM yesterday.?? It radiated to the back and alsoto left shoulder.?? Denies any URI symptoms.?? Denies any recent travel, denies any personal or family history of PE or DVT.?? Denies any recent surgery or immobilization.?? Patient does not have a history of diabetes.?? Reports compliance with her antihypertensives.?? Patient received baby aspirinwith EMS and says that medications provided in the ER relieved her pain.?? She currently does not have any chest pain.?? Denies any shortness of breath at the moment.?? Denies any abdominal symptoms.?? Denies any sick contacts.?? Patient was initially put on nonrebreather's but has been maintainingher saturation on room air with good plethysmography.?? Based on chart review she had minimal improvement in her chest pain with sublingual nitro.?? Underwent CT angio, initial troponin was 47, repeat troponin was 749 and was discussed with [facility] cardiology patient was given additional sublingual nitro as well as Nitropaste was placed which led to chest pain-free status.?? Patient was heparinized and discussion with cardiology. ?? Patient has remained afebrile since arrival to the ER, initial blood pressure 181/113, most recent blood pressure 150/85, maintaining saturation of 98% on room air, heart rate 82, on review of labs, white count 8.0, hemoglobin 13.1, platelets 251, PTT 51.0, sodium 139, potassium 4.1, glucose 118, creatinine 0.6, LFTs unremarkable, proBNP 114, troponin trend???46, 749, 1425, 1241.,?? COVID-19 PCR negative, chest x-ray did not have any acute abnormalities.?? CT angiogram of the chest negative for aortic aneurysm or dissection, 1 cm left adrenal adenoma and beaded appearance of renal arteriesnoted suggestive of fibromuscular dysplasia. ??EKG obtained in the ER.Showed sinus rhythm at rate of [address] changes, subsequent repeat EKG showed new T wave inversions in V4 and V5. Review of Systems General ROS:??negative for chills or fever, noted fatigue, no night sweats, no unexpained weight loss or weight gain Psychological ROS:negative for anxiety or depressive symptoms, no suicidal thoughts, appropriate insight into situation, mood appears appropriate for situation ENT ROS:??negative for nasal congestion, no sinus drainage, no nosebleeding, no sore throat, no dysphagia, no ear pain Hematological and Lymphatic ROS:??negative for bleeding problems, no history of blood clots, no recent increase in bruising, no noted swollen lymph nodes Endocrine ROS:??negative for polyuria/polydipsia?? Respiratory ROS:??negative for cough, no shortness of breath, no wheezing Cardiovascular ROS:??Positive for chest pain, ??No dyspnea on exertion, ??No edema, no palpitations, no history of loss of consciousness, no orthopnea, no paroxysmal nocturnal dyspnea?? Gastrointestinal ROS:??negative for reflux, positive for chronic abdominal pain, no black or bloodystools- also no history of constipation, diarrhea, heartburn or hematemesis Genito-Urinary ROS:??no dysuria, no trouble voiding, or hematuria Musculoskeletal ROS:??negative for worsening ongoing back pain, no worsening or chronic neck pain, no new or worsening joint pain, no calf swelling Neurological ROS:??no symptoms of confusion, no dizziness, no gait disturbance, no impaired coordination/balance, no memory loss, no history of seizures, no history of speech problems, no tremors , no visual changes. Objective ? Vital Signs?? Temperature: 97.8 DegF (08/20/22 23:20:00) Temperature Route: Oral (08/20/22 23:20:00) Pulse Rate: 82 bpm (08/21/22 03:42:00) Respiratory Rate: 18 br/min (08/21/22 03:42:00) Systolic Blood Pressure:??150 mm Hg??High (08/21/22 03:42:00) Diastolic Blood Pressure:??85 mm Hg??High (08/21/22 03:42:00) Blood pressure sites: Arm, left (08/21/22 03:42:00) Mean Arterial Pressure: 121 mm Hg (08/21/22 02:39:00) Pulse Pressure: 71 mm Hg (08/21/22 02:39:00) Oxygen Saturation: 98 % (08/21/22 03:42:00) Liters per Minute: 10 L/min (08/20/22 15:40:00) Mode of Delivery (Oxygen): Room air (08/21/22 03:42:00) Early Warning Score: 2 (08/21/22 03:50:40) ? Pain Scores Pain relief acceptable: Yes (22:05) ? Intake/Output? No Data Available ? [place] Coma Scale Beth[place]hem Coma Score: 15 (08/20/22 19:57:00) Motor Response-Adult: Obeys commands (08/20/22 19:57:00) Response Eye Opening: Spontaneously (08/20/22 19:57:00) Verbal Response-Adult: Oriented and converses (08/20/22 19:57:00) ? Basic ADLs Ambulatory devices needed: None (08/20/22) ? Physical Exam ?? General appearance- alert, cooperative, no distress, appears stated age, oriented to time, place and person, Head- Normocephalic, without obvious abnormality, atraumatic Eyes-conjunctivae/corneas clear. PERRL, EOM's intact. Nose- Nares normal. Septum midline. Mucosa normal. No drainage or sinus tenderness. Throat-Lips, mucosa, and tongue normal. Neck- supple, symmetrical, trachea midline, no adenopathy, thyroid: not enlarged, symmetric, no tenderness/mass/nodules, no carotid bruit and no JVD Back- symmetric, no curvature. No CVA tenderness Lungs-??clear to auscultation bilaterally Chest wall- no tenderness, no skin rash or lesions or bruising, no crepitance Heart- regular rate and rhythm, S1, S2 normal, no?? click, rub or gallop Abdomen-??soft,??mild epigastric tenderness to palpation, no rebound, no guarding, no peritoneal signs??bowel sounds normal. No masses,?? No organomegaly Extremities- extremities normal, atraumatic, no cyanosis or edema, warm and well perfused. Pulses- 2+ and symmetric on dorsal pedal pulses, posterior tibial pulses, radial pulses Skin- Skin color, texture, turgor normal. No rashes or lesions Neurologic- Normal, nonfocal, no focal weakness ? Assessment/Plan ?? Non-ST segment elevation W[place] Family history of premature CAD Cardiology was consulted in the ER, formal consult to follow Troponins??x4 were trended and have peaked??at 1425. Echo Patient is on heparin drip,??risk versus benefits were??explained to the patient using president. ??She verbalized understanding??of??risks of continuation of heparin drip and agrees with continuation of heparin drip. ??To be titrated using institutional protocol Check echo Check hemoglobin A1c, lipid profile, magnesium and phosphorus Currently chest pain-free, will use sublingual??nitro as needed??for chest pain Patient does have Nitropaste in place Telemetry monitoring Patient received aspirin 325 with EMS, continue with aspirin 81 daily Start on Lipitor 40 empirically We will repeat EKG if chest pain recurs ?? Uncontrolled hypertension Resume home dose of??antihypertensives with chlorthalidone, losartan and metoprolol Hydralazine??IV as needed for SBP greater than 160 Monitor blood pressure closely ?? GERD Continue PPI ?? CODE STATUS???full code ?? DVT prophylaxis???on heparin drip ?? Diet???n.p.o. till cardiology eval, in anticipation of cardiac cath ?? Raheem Albarran MD [facility] Medicine Date-August 21, 2022. ??Patient seen at??1:40 AM ?? IMPORTANT: This document was created by voice recognition software. A conscious effort has been made to improve accuracy of the public address system mechanic. Any obvious errors or omissions should be clarified with the authorof this document. ?? Addendum???4:07 AM Notified that patient??had a blood pressure of??89/53??after IV hydralazine??And has been having vomiting??and feeling dizzy. ??Ordered??500 mL LR bolus.?? Will reassess blood pressure after the bolus. ??If remains hypotensive, will DC antihypertensives.?? DC IV hydralazine as needed. ??Repeating EKG??stat. ??Check lactate in the morning ?? Addendum???4:30 AM EKG reviewed??does have T wave inversions??from lead??V1 to V6??with right bundle branch block, showing sinus rhythm with PVCs??at rate of 82, QTc 476.?? Blood pressure improved??with IV fluid to systolic 110s.?? Nausea improved with Zofran.?? Hold off on chlorthalidone??and??ARB. ??Continue with metoprolol for now. Histories Allergies Allergies ?(Active and Proposed Allergies Only) morphine? (Severity: Unknown severity, Onset: Unknown) Peanuts? (Severity: Unknown severity, Onset: Unknown) ? Past Medical History/Problem List Active Problems??(7) Bilateral tubal ligation Depression Dyspepsia, h. pylori +, rxed 2008 Graves' disease Headache Hypertension Weight loss ? Past Surgical History No surgery history documented. ? Social History No social history documented. ? Psychosocial History ? Family History Father: Hypertension ? Travel History [facility]: No ?? Medications Home Medications Ibuprofen (ibuprofen 600 mg oral tablet)?1?tab(s)?600?Milligram?By Mouth?3 times a day?as needed?Pain , Moderate?for 5?Days?Temperature Greater than 100.5 Metoprolol (Metoprolol Succinate ER 50 mg oral tablet, extended release)?TAKE 1 TABLET BY MOUTH EVERY DAY Olmesartan (olmesartan 40 mg oral tablet)?TAKE 1 TABLET BY MOUTH EVERY DAY Omeprazole (omeprazole 10 mg oral enteric coated capsule)?1?capsule?10?Milligram?By Mouth?Daily Spironolactone (spironolactone 100 mg oral tablet)?TAKE 1 TABLET BY MOUTH EVERY DAY ? Results Recent Labs BLOOD COUNT & DIFF WBC 8.0 k/mm3 ()?? 08/20/2022 15:55 RBC 4.74 m/mm3 ()?? 08/20/2022 15:55 Hgb 13.1 Gm/dL ()?? 08/20/2022 15:55 Hct 42.6 % ()?? 08/20/2022 15:55 MCV 89.9 femtoliters ()?? 08/20/2022 15:55 MCH 27.6 pg ()?? 08/20/2022 15:55 MCHC 30.8 g/dL (Low)?? 08/20/2022 15:55 Platelet Count 251 k/mm3 ()?? 08/20/2022 15:55 RDW-SD 40.4 femtoliters ()?? 08/20/2022 15:55 MPV 11.4 femtoliters ()?? 08/20/2022 15:55 Nucleated RBC (Automated) 0.0 #/100 WBC'S ()?? 08/20/2022 15:55 Abs. NRBC 0.0 k/mm3 ()?? 08/20/2022 15:55 Abs. Neut 4.5 k/mm3 ()?? 08/20/2022 15:55 Abs. Lymph 2.6 k/mm3 ()?? 08/20/2022 15:55 Abs. Wolfe 0.6 k/mm3 ()?? 08/20/2022 15:55 Abs. Eo 0.2 k/mm3 ()?? 08/20/2022 15:55 Abs. Baso 0.0 k/mm3 ()?? 08/20/2022 15:55 Neut % 56.4 % ()?? 08/20/2022 15:55 Lymph % 33.0 % ()?? 08/20/2022 15:55 Wolfe % 8.1 % ()?? 08/20/2022 15:55 Eos % 2.0 % ()?? 08/20/2022 15:55 Baso % 0.4 % ()?? 08/20/2022 15:55 Imm Gran 0.1 % ()?? 08/20/2022 15:55 Abs. Imm Gran 0.0 k/mm3 ()?? 08/20/2022 15:55 ?? CARDIAC Nt-Probnp 114 pg/mL ()?? 08/20/2022 15:55 High Sensitivity Troponin (HSTnT) 1241 ng/L (Critical)?? 08/21/2022 01:18 ?? CHEM GENERAL Sodium 139 mmol/L ()?? 08/20/2022 15:55 Potassium 4.1 mmol/L ()?? 08/20/2022 15:55 Chloride 103 mmol/L ()?? 08/20/2022 15:55 Bicarbonate Level 26 mmol/L ()?? 08/20/2022 15:55 Anion Gap 10 ()?? 08/20/2022 15:55 Glucose Level 118 mg/dL (High)?? 08/20/2022 15:55 BUN 13 mg/dL ()?? 08/20/2022 15:55 Creatinine-Blood 0.6 mg/dL ()?? 08/20/2022 15:55 Estimated GFR Creatinine 104 ML/MIN/1.73 M2 ()?? 08/20/2022 15:55 Calcium 9.7 mg/dL ()?? 08/20/2022 15:55 Protein, Total 6.7 Gm/dL ()?? 08/20/2022 15:55 Albumin 4.2 Gm/dL ()?? 08/20/2022 15:55 Alkaline Phosphatase 93 units/L ()?? 08/20/2022 15:55 Lipase 36 units/L ()?? 08/20/2022 15:55 AST (SGOT) 29 units/L ()?? 08/20/2022 15:55 ALT (SGPT) 27 units/L ()?? 08/20/2022 15:55 Bilirubin, Total 0.5 mg/dL ()?? 08/20/2022 15:55 Bilirubin, Direct <0.2 mg/dL ()?? 08/20/2022 15:55 Bilirubin, Indirect Direct bilirubin is less than the measureable limit. Therefore, indirect mg/dL ()?? 08/20/2022 15:55 ?? COAG APTT 51.0 seconds (High)?? 08/21/2022 01:18 ?? ENDOCRINE/TUMOR MARKER Serum Qual NEGATIVE mIU/mL ()?? 08/20/2022 15:55 ?? HEME OTHER Hold Lavender Top SPECIMEN DISCARDED AFTER 24 HOURS. ()?? 08/20/2022 20:00 Hold Blue Top SPECIMEN DISCARDED AFTER 4 HOURS. ()?? 08/20/2022 15:55 ?? VIROLOGY COVID-19 by RT-PCR NEGATIVE ()?? 08/20/2022 21:06 ? Abnormal Labs ?? BLOOD COUNT & DIFF ??Abs. Imm Gran ??0.0 k/mm3 () ??08/20/2022 15:55 ??Abs. NRBC ??0.0 k/mm3 () ??08/20/2022 15:55 ??Imm Gran ??0.1 % () ??08/20/2022 15:55 ??MCHC ??30.8 g/dL (Low) ??08/20/2022 15:55 ??Nucleated RBC (Automated) ??0.0 #/100 WBC'S () ??08/20/2022 15:55 ??RDW-SD ??40.4 femtoliters () ??08/20/2022 15:55 ? CARDIAC ??High Sensitivity Troponin (HSTnT) ??1241 ng/L (Critical) ??08/21/2022 01:18 ? CHEM GENERAL ??Estimated GFR Creatinine ??104 ML/MIN/1.73 M2 () ??08/20/2022 15:55 ??Glucose Level ??118 mg/dL (High) ??08/20/2022 15:55 ? COAG ??APTT ??51.0 seconds (High) ??08/21/2022 01:18 ? ENDOCRINE/TUMOR MARKER ?? Serum Qual ??NEGATIVE mIU/mL () ??08/20/2022 15:55 ? HEME OTHER ??Hold Blue Top ??SPECIMEN DISCARDED AFTER 4 HOURS. () ??08/20/2022 15:55 ??Hold Lavender Top ??SPECIMEN DISCARDED AFTER 24 HOURS. () ??08/20/2022 20:00 ? VIROLOGY ??COVID-19 by RT-PCR ??NEGATIVE () ??08/20/2022 21:06 ? Note: Critical results are displayed in red. ? Blood Glucose Trend Glucose Level:??118 mg/dL??High (08/20/22 15:55:00) ? CBC, CBC w/Diff?? CBC?? Differential?? WBC: 8 k/mm3 (15:55) Abs. Neut: 4.5 k/mm3 (15:55) RBC: 4.74 m/mm3 (15:55) Abs. Lymph: 2.6 k/mm3 (15:55) Hct: 42.6 % (15:55) Abs. Wolfe: 0.6 k/mm3 (15:55) RDW-SD: 40.4 femtoliters (15:55) Abs. Eo: 0.2 k/mm3 (15:55) Nucleated RBC (Automated): 0 #/100 WBC'S (15:55) Abs. Baso: 0 k/mm3 (15:55) Abs. NRBC: 0 k/mm3 (15:55) Neut %: 56.4 % (15:55) ?? Lymph %: 33 % (15:55) ?? Wolfe %: 8.1 % (15:55) ?? Eos %: 2 % (15:55) ?? Baso %: 0.4 % (15:55) ?? Imm Gran: 0.1 % (15:55) ?? Abs. Imm Gran: 0 k/mm3 (15:55) ? BMP, Mg, and Phos Anion Gap: 10 (15:55) Bicarbonate Level: 26 mmol/L (15:55) BUN: 13 mg/dL (15:55) Calcium: 9.7 mg/dL (15:55) Chloride: 103 mmol/L (15:55) Creatinine-Blood: 0.6 mg/dL (15:55) Estimated GFR Creatinine: 104 ML/MIN/1.73 M2 (15:55) Glucose Level:??118 mg/dL??High (15:55) Potassium: 4.1 mmol/L (15:55) Sodium: 139 mmol/L (15:55) ?? Coagulation Profile APTT:??51 seconds??High (01:18) ?? LFT Albumin: 4.2 Gm/dL (15:55) Alkaline Phosphatase: 93 units/L (15:55) ALT (SGPT): 27 units/L (15:55) AST (SGOT): 29 units/L (15:55) Bilirubin, Direct: <0.2 (15:55) Bilirubin, Indirect: Direct bilirubin is less than the measureable limit. Therefore, indirect (15:55) Bilirubin, Total: 0.5 mg/dL (15:55) ?? Urinalysis?? No qualifying data available. ?? Microbiology ?? COVID-19 (Novel Coronavirus), Rapid PCR?? Completed?? Source: Nasal Body Site: Nose Collected Dt/Tm: 08/20/2022 20:06 Last Updated Dt/Tm: 08/20/2022 22:47 ? Cardiology Labs Nt-Probnp: 114 pg/mL (08/20/22 15:55:00) High Sensitivity Troponin (HSTnT):??1241 ng/L??Critical (08/21/22 01:18:00) High Sensitivity Troponin (HSTnT):??1405 ng/L??Critical (08/20/22 19:48:00) High Sensitivity Troponin (HSTnT):??749 ng/L??Critical (08/20/22 18:02:00) ?? Blood Gases?? No qualifying data available. ?? Uric/LDH?? No qualifying data available. ?? EKG study * Event Display: ECG 12-Lead Authored Date: Please click on pdf link to open report * Event Display: ECG 12-Lead Authored Date: Ventricular Rate: 71 BPM Atrial Rate: 71 BPM P-R Interval: 132 ms QRS Duration: 130 ms Q-T Interval: 434 ms QTC Calculation(Bazett): 471 ms P Doran: 31 degrees R Doran: 184 degrees T Doran: 3 degrees Normal sinus rhythm Right bundle branch block Abnormal ECG Confirmed by WAYNE HER ([id number]) on 08/25/2022 10:03:47 AM Gordon: WAYNE HER * Event Display: ECG 12-Lead Authored Date: Please click on pdf link to open report * Event Display: ECG 12-Lead Authored Date: Ventricular Rate: 67 BPM Atrial Rate: 67 BPM P-R Interval: 132 ms QRS Duration: 120 ms Q-T Interval: 440 ms QTC Calculation(Bazett): 464 ms P Doran: 23 degrees R Doran: -12 degrees T Doran: 23 degrees Normal sinus rhythm Right bundle branch block T wave abnormality, consider lateral ischemia Abnormal ECG Confirmed by WAYNE HER ([id number]) on 08/21/2022 8:25:06 AM Gordon: WAYNE HER * Event Display: ECG 12-Lead Authored Date: Please click on pdf link to open report * Event Display: ECG 12-Lead Authored Date: Ventricular Rate: 75 BPM Atrial Rate: 75 BPM P-R Interval: 126 ms QRS Duration: 122 ms Q-T Interval: 436 ms QTC Calculation(Bazett): 486 ms P Doran: 35 degrees R Doran: -33 degrees T Doran: 26 degrees Normal sinus rhythm Left axis deviation Right bundle branch block T wave abnormality, consider lateral ischemia Abnormal ECG When compared with ECG of 20-AUG-2022 16:28, No significant change was found Confirmed by RAMIRO SMILEY MD ([id number]) on 08/21/2022 8:12:28 AM Gordon: RAMIRO SMILEY MD Heart * Event Display: Echocardiogram - Complete Authored Date: [id number] Transthoracic Echocardiography Report (TTE) Patient Demographics Patient Name DENI VIGIL Date of Study 08/21/2022 Corporate Gender Female Facility Race Ethnicity or Date of 1965 Height: 61.02 inches Age 57 year(s) Weight: 119.07 pounds Accession Number [id number] BSA: 1.52 m2 Room Number [id number] BMI: 22.48 kg/m2 Referring Physician Not on Staff Interpreting Shelia Sykes MD Referring MD Physician Avis Maciel [employer]nequin [employer] Becki Olivera Indications NSTEMI. Clinical History Weight loss Graves disease CP NSTEMI HTN Study Data Type of Study TTE procedure:Echo Complete-(Doppler, Colorflow) with Contrast. Study Date08/21/2022 Start Time: 10:47 AM Study Location: [facility] [place] Adult Echo Study Status: Bedside Patient Status: Routine Technical Quality: Adequate Blood Pressure:121/66 mmHg EKG: Within normal limits HR: 67 bpm Contrast Medium: Definity. Amount - 2 ml 2D Measurements LV Diastolic Dimension: 4.6 cm LV Systolic Dimension: 2.7 cm LV Septum Diastolic: 0.9 cm LV PW Diastolic: 0.9 cm AO Root Dimension: 2.9 cm LA ESV (BP):32.4 ml LVOT Stroke Volume: 27.45 ml LA ESV Index: 21 ml/m2 Stroke Volume Index18.06 ml/m2 LVOT: 1.7 cm Cardiac Index:1.21 l/min/m2 Ascending Aorta:2.9 cm Doppler Measurements AV Peak Velocity: 103 cm/s MV Peak E-Wave: 51.6 cm/s AV Peak Gradient: 4.24 mmHg MV Peak A-Wave: 84.6 cm/s AV Mean Gradient: 2 mmHg MV E/A Ratio: 0.61 AV VTI:21.2 cm LVOT Peak Velocity: 61.4 cm/s LVOT VTI12.1 cm MV Deceleration Time: 165 msec AV Area (Continuity):1.29 cm2 TR Velocity:201 cm/s PV Peak Velocity: 89 cm/s TR Gradient:16.16 mmHg PV Peak Gradient: 3.17 mmHg Estimated RAP:3 mmHg Estimated RVSP: 19.2 mmHg E' Septal Velocity: 8.38 cm/s E' Lateral Velocity: 9.11 cm/s E/Med E':[id number] E/Lat E':5.755959 Cardiac Anatomy Left Ventricle/Interventricular Septum The left ventricle is normal in size. The ejection fraction is 30-35% overall. The apex and apical lateral hutson are akinetic. Grade I diastolic dysfunction. Left Atrium/Interatrial Septum The left atrium is normal in size. Aortic Valve Trace regurgitation. Visually, no significant stenosis. Mitral Valve Trace regurgitation. Aorta The ascending aorta and aortic root are upper limit of normal in size when indexed. Right Ventricle The right ventricle is normal in size. Function is preserved. Right Atrium The right atrium is normal in size. Pulmonic Valve Trace regurgitation. Tricuspid Valve Mild regurgitation. Pumonary Artery The pulmonary artery systolic pressure estimation is within normal limits. Venous Structures IVC is upper limit of normal in size. Inspiratory collapse is normal. Pericardium/Extracardiac No definite pericardial effusion appreciated. Summary The left ventricle is normal in size. The ejection fraction is 30-35% overall. The apex and apical lateral hutson are akinetic. Grade I diastolic dysfunction. The left atrium is normal in size. The right ventricle is normal in size. Function is preserved. The right atrium is normal in size. The pulmonary artery systolic pressure estimation is within normal limits. Signature * Event Display: Echocardiogram - Complete Authored Date: [facility] Progress note * Lien MASSEY, Willi Felton: PERFORM Event Display: [facility] Authored Date: Patient: ??DENI VIGIL ? Age:??57 Years?Sex:??Female?:??1965?? Indication for Consult chest pain/sob, initially on 10 L NRB.lethargic and diaohoretic. pains tarted around 1430. pain radiates to back. given 324 mg ASA History of Present Illness/Interval History Patient was seen with president.?? Other than diarrhea no complaints.?? No complaints of chest pain or shortness of breath. Review of Systems No pertinent positives a 12 point review of systems except for the diarrhea Physical Exam Vitals & Measurements T:??97.6?F ?? IN:??63?? RR:??18?? BP:??146/75?? SpO2:??98%?? HT:??155??cm?? WT:??57.1??kg?? BMI:??23.77?? Weight lb/oz: 125 lb 14 oz Pupils are equal No JVD Chest wall no pain Lungs clear Cardiac exam regular rhythm without murmur Abdomen soft Extremities cath site is stable with a moderate area of hematoma??and ecchymosis which is resolving. Motor strength episode 5+ Gait normal Assessment/Plan Chest pain Patient with no obstructive coronary disease possible Takotsubo cardiomyopathic process??with moderately reduced left ventricular systolic function.?? Switching patient's losartan to valsartan so that she can be switched to??Entresto as an outpatient if her insurance company will pay for it.?? Patient will continue on cardioselective beta-chan.?? We will start??low-dose??Aldactone??12.5 mg a da y.?? We will hold off on starting Farxiga also due to the fact that we do not know what her insurance company will cover.?? This may gradually added on outpatient basis. ??I explained to the patient that she has a dilated cardiomyopathy??treatment plan is medical management??and reevaluation with an echocardiogram in 3 months to see if her EF is recovered Chest pain Hypertension NSTEMI (non-ST elevated myocardial infarction) Orders: Valsartan, 40 mg, Tablet, By Mouth, Daily, Routine, 08/26/22 9:00:00 EST Problem List/Past Medical History Ongoing Bilateral tubal ligation Depression Dyspepsia, h. pylori +, rxed 2007 Graves' disease Headache Hypertension Weight loss Historical No qualifying data Procedure/Surgical History No qualifying data available. Hospital Medications Medications (14) Active SCHEDULED: (6) Aspirin 81 mg EC Tablet (aspirin 81 mg oral delayed release tablet) ??81 mg, By Mouth, Daily Atorvastatin 80 mg Tablet (atorvastatin 80 mg oral tablet) ??80 mg, By Mouth, Daily at bedtime Metoprolol 25mg Tablet (metoprolol 25 mg oral tablet) ??25 mg, By Mouth, Every 6 hours NaCl 0.9% Flush 3ml (NaCL 0.9% Flush) ??3 mL, IV Push, Every 8 hours Oxybutynin 5 mg ER Tablet (Oxybutynin XL Tablet) ??5 mg, By Mouth, Daily Valsartan 40 mg Tablet (valsartan 40 mg oral tablet) ??40 mg, By Mouth, Daily CONTINUOUS: (1) NaCL 0.9% (150 mL) Cont IV 300 mL (NaCL 0.9% 300 mL) ??300 mL, IV Infusion, 150 mL/hr PRN: (7) Acetaminophen 325 mg Tablet (Acetaminophen Tablet) ??650 mg, By Mouth, Every 4 hours Dextromethorphan-Guaifenesin 20 mg-200 mg/10 mL Liqu UD (Robitussin DM Liquid) ??10 mL, By Mouth, Every 4 hours Melatonin 3 mg Tablet (Melatonin Tablet) ??3 mg, By Mouth, Daily at bedtime Ondansetron 2mg/mL Inj (2mL Vial) (Zofran Inj) ??4 mg, IV Push, Every 6 hours Polyethylene Glycol 17 Gm Powder (MiraLax Powder) ??17 Gm 1 pack/packet, By Mouth, Daily Senna 8.6 mg / Docusate 50 mg tablet (Docusate/Senna Tablet) ??1 tablet, By Mouth, 2 times a day Simethicone 80 mg Chewable Tablet (Simethicone Tablet) ??80 mg, Chew, 3 times a day Patient Education Titles Dapagliflozin Oral Tablet?? Losartan Oral Tablet?? Having Cardiac Catheterization?? Discharge Instructions for Cardiac Catheterization?? Diet-Cardiac?? Heart Failure: Tracking Your Weight?? My Heart Failure Symptoms Chart?? Heart Failure: Know Your Baselines?? Heart Failure Discharge Instructions for Heart Failure?? Dapagliflozin Oral Tablet?? Metoprolol Extended Release Oral Capsule?? Losartan Oral Tablet?? Takotsubo Cardiomyopathy?? Takotsubo Cardiomyopathy?? Follow-Up Appointments Added Follow Up ?Time Frame ?Comments PCP Not on Staff?Within two weeks Willi Emmanuel MD?2 months?Cardiology office will call youfor an appointment. [facility] Cardiac Rehab?09/24/2022 [phone] Lab Results Cardiology Labs WBC: 8.5 k/mm3 (08/25/22) RBC: 4.37 m/mm3 (08/25/22) Hgb: 12.3 Gm/dL (08/25/22) Hct: 39 % (08/25/22) MCV: 89.2 femtoliters (08/25/22) MCH: 28.1 pg (08/25/22) MCHC:??31.5 g/dL??Low (08/25/22) Platelet Count: 193 k/mm3 (08/25/22) RDW-SD: 39.6 femtoliters (08/25/22) Nucleated RBC (Automated): 0 #/100 WBC'S (08/25/22) Abs. Neut:??11.1 k/mm3??High (08/21/22) Abs. Lymph: 1.7 k/mm3 (08/21/22) Abs. Wolfe:??1.1 k/mm3??High (08/21/22) Abs. Eo: 0 k/mm3 (08/21/22) Abs. Baso: 0.1 k/mm3 (08/21/22) Neut %:??79.3 %??High (08/21/22) Wolfe %: 7.6 % (08/21/22) Eos %: 0.2 % (08/21/22) Baso %: 0.4 % (08/21/22) Imm Gran: 0.4 % (08/21/22) Abs. Imm Gran: 0.1 k/mm3 (08/21/22) APTT:??96.8 seconds??Critical (08/24/22) Sodium: 138 mmol/L (08/25/22) Potassium: 4.2 mmol/L (08/25/22) Chloride: 104 mmol/L (08/25/22) Bicarbonate Level: 26 mmol/L (08/25/22) Glucose Level: 85 mg/dL (08/24/22) Hemoglobin A1C (Monitoring): 4.9 % (08/21/22) BUN: 13 mg/dL (08/25/22) Creatinine-Blood: 0.6 mg/dL (08/25/22) Calcium: 9.1 mg/dL (08/24/22) Protein, Total:??6.1 Gm/dL??Low (08/21/22) Albumin: 3.8 Gm/dL (08/21/22) Alkaline Phosphatase: 87 units/L (08/21/22) AST (SGOT):??60 units/L??High (08/21/22) ALT (SGPT): 29 units/L (08/21/22) Bilirubin, Total: 0.6 mg/dL (08/21/22) Nt-Probnp: 114 pg/mL (08/20/22) Cholesterol: 171 mg/dL (08/21/22) Triglycerides: 69 mg/dL (08/21/22) HDL Cholesterol: 72 mg/dL (08/21/22) LDL Cholesterol: 85 mg/dL (08/21/22) Non HDL Cholesterol: 99 mg/dL (08/21/22) Diagnostic Impression ECG ECG 12-Lead ?? 09:27:15 Please click on pdf link to open report ?? Signed By: Wayne Her MD ?? ECG 12-Lead ?? 09:27:15 Ventricular Rate: 71 BPM Atrial Rate: 71 BPM P-R Interval: 132 ms QRS Duration: 130 ms Q-T Interval: 434 ms QTC Calculation(Bazett): 471 ms P Doran: 31 degrees R Doran: 184 degrees T Doran: 3 degrees Normal sinus rhythm Right bundle branch block Abnormal ECG Confirmed by WAYNE HER ([id number]) on 08/25/2022 10:03:47 AM ?? Gordon: WAYNE HER ?? Signed By: Wayne Her MD Echo Echocardiogram - Complete ?? 10:47:41 Summary The left ventricle is normal in size. The ejection fraction is 30-35% overall. The apex and apical lateral hutson are akinetic. Grade I diastolic dysfunction. ?? The left atrium is normal in size. ?? The right ventricle is normal in size. Function is preserved. ?? The right atrium is normal in size. ?? The pulmonary artery systolic pressure estimation is within normal limits. ?? Signature ?? Signed By: Onel MASSEY, Shelia Hoskins Cardiac Cath Procedure Cardiac Cath Procedure ?? 12:40:00 Conclusions ?? Diagnostic Summary 57-year-old female with history of hypertension and hyperlipidemia who presented to the hospital with chest pain. ?? LVEDP 18 mmHg. No significant pullback gradient across aortic valve. ?? Diagnostic angiogram revealed normal LMCA, normal LAD, normal LCx and normal RCA. ?? Above-mentioned finding indicates that patient most likely has nonischemic cardiomyopathy, most likely stress induced cardiomyopathy/Takotsubo cardiomyopathy. Further work-up for nonischemic cardiomyopathy as per consulting cardiology team. ?? Diagnostic Recommendations Aggressive primary risk factor modification according to ATP III guidelines. Guideline directed medical management for heart failure with reduced ejection fraction. Further work-up for nonischemic cardiomyopathy as per consulting team but is most likely Takotsubo cardiomyopathy. Consider repeating echocardiogram in 8 to 12 weeks to see if LV function recovered with guideline directed medical management or not. We will arrange follow-up visit at [facility] cardiology office. ?? Signatures ?? Signed By: Blanche MASSEY, Shyann * Benitez MASSEY, Felipe Ramirez: MODIFY, MODIFY, PERFORM Event Display: Progress Note Hospital Authored Date: [id number] Patient: ??DENI VIGIL ? Age:??57 Years?Sex:??Female?:??1965?? Patient Information Discharge Location: Primary Care Physician: Not on Staff, PCP Admit Date/Time: 08/20/22 22:51 Discharge Disposition Discharge Disposition: ?? Discharge Diagnosis Chest pain (R07.9) Hypertension (I10) NSTEMI (non-ST elevated myocardial infarction) (I21.4) ?? _ Discharge Medications dapagliflozin (dapagliflozin 5 mg oral tablet)?1?tab(s)?5?Milligram?By Mouth?Daily Losartan (losartan 25 mg oral tablet)?25?Milligram?1?tablet?By Mouth?Daily at bedtime?for 30?Days Metoprolol (metoprolol 100 mg oral tablet, extended release)?100?Milligram?1?tablet?By Mouth?Daily ? Quality Measures ?ACEI or ARB for LVSD:??ARB has been prescribed ?Beta-Chan Prescribed at Discharge:??Beta-Chan Prescribed ? Medications Started losartan dapagliflozin Medications Discontinued metoprolol Doses Changed None Allergies Allergies ?(Active and Proposed Allergies Only) morphine? (Severity: Unknown severity, Onset: Unknown) Peanuts? (Severity: Unknown severity, Onset: Unknown) ? Hospital Course Deni Vigil is an extremely pleasant 57-year-old female. She came in initially with complaints of chest pain, now waiting for cardiac cath. ?? Non-ST segment elevation [place] Family history of premature CAD Non-ischemic cardiomyopathy Hypertension - Troponins??x 4 were trended and have peaked??at 1425. - Echo: EF 30-35% overall. The apex and apical lateral hutson are akinetic. Grade I diastolic dysfunction - Hemoglobin A1c 4.9, LDL 85 - Coronary angiogram on 08/24 showed normal LMCA, normal LAD, normal LCx and normal RCA. Above-mentioned finding indicates that patient most likely has nonischemic cardiomyopathy, most likely stress induced cardiomyopathy/Takotsubo cardiomyopathy. - Plan: Will stop aspirin and atorvastatin as it is non ischemic cardiomyopathy On discharge, metoprolol XL 100 mg daily, losartan 25 mg daily and dapagliflozin 5 mg daily Will stop chlorthalidone on discharge as metoprolol dose has been increased Low Na diet FU with cardiology as outpatient ?? Upon assessment today, she is doing well, denies any chest pain, palpitations or SOB. No leg swelling. Medications and plan of care explained to the patient and her daughter in detail prior to discharge. Objective . Physical Exam General Appearance: Adult female. NAD. Cardiovascular: RRR S1 and S2 heard with no M/R/G. Respiratory: ??Breath sounds clear to auscultation bilaterally. No wheezing or crackles. GI: Soft. Nontender and nondistended. BS are present. MS: ??No edema or erythema in the lower extremities. Neuro: ??No slurred speech. ??Patient seen moving their upper and lower extremities independently. Psych: Alert and oriented x3. Appropriate and pleasant. [facility] cardiology Patient Education Titles Diet-Cardiac?? Heart Failure: Tracking Your Weight?? My Heart Failure Symptoms Chart?? Heart Failure: Know Your Baselines?? Heart Failure Discharge Instructions for Heart Failure?? Dapagliflozin Oral Tablet?? Metoprolol Extended Release Oral Capsule?? Losartan Oral Tablet?? Takotsubo Cardiomyopathy?? Takotsubo Cardiomyopathy?? Follow-Up Appointments Added Follow Up ?Time Frame ?Comments PCP Not on Staff?Within two weeks Willi Emmanuel MD?2 months?Cardiology office will call youfor an appointment. [facility] Cardiac Rehab?09/24/2022 [phone] Post Discharge Care Diet: Cardiac diet Activity: OOB as Sheila ??With Assistance ??Minimize activity of the hand on the side of the procedure Code Status: ?? Full Resuscitation Discharge ?08/25/22 14:05:00 EST Discharge Prescriptions ?ePrescribed, ??08/25/22 14:05:00 EST Results Discharge Labs BLOOD COUNT & DIFF WBC 8.5 k/mm3 ()?? 08/25/2022 04:41 RBC 4.37 m/mm3 ()?? 08/25/2022 04:41 Hgb 12.3 Gm/dL ()?? 08/25/2022 04:41 Hct 39.0 % ()?? 08/25/2022 04:41 MCV 89.2 femtoliters ()?? 08/25/2022 04:41 MCH 28.1 pg ()?? 08/25/2022 04:41 MCHC 31.5 g/dL (Low)?? 08/25/2022 04:41 Platelet Count 193 k/mm3 ()?? 08/25/2022 04:41 RDW-SD 39.6 femtoliters ()?? 08/25/2022 04:41 MPV 11.7 femtoliters ()?? 08/25/2022 04:41 Nucleated RBC (Automated) 0.0 #/100 WBC'S ()?? 08/25/2022 04:41 Abs. NRBC 0.0 k/mm3 ()?? 08/25/2022 04:41 Abs. Neut 11.1 k/mm3 (High)?? 08/21/2022 04:15 Abs. Lymph 1.7 k/mm3 ()?? 08/21/2022 04:15 Abs. Wolfe 1.1 k/mm3 (High)?? 08/21/2022 04:15 Abs. Eo 0.0 k/mm3 ()?? 08/21/2022 04:15 Abs. Baso 0.1 k/mm3 ()?? 08/21/2022 04:15 Neut % 79.3 % (High)?? 08/21/2022 04:15 Lymph % 12.1 % (Low)?? 08/21/2022 04:15 Wolfe % 7.6 % ()?? 08/21/2022 04:15 Eos % 0.2 % ()?? 08/21/2022 04:15 Baso % 0.4 % ()?? 08/21/2022 04:15 Imm Gran 0.4 % ()?? 08/21/2022 04:15 Abs. Imm Gran 0.1 k/mm3 ()?? 08/21/2022 04:15 ?? CHEM GENERAL Sodium 138 mmol/L ()?? 08/25/2022 04:41 Potassium 4.2 mmol/L ()?? 08/25/2022 04:41 Chloride 104 mmol/L ()?? 08/25/2022 04:41 Bicarbonate Level 26 mmol/L ()?? 08/25/2022 04:41 Anion Gap 8 ()?? 08/25/2022 04:41 Glucose Level 85 mg/dL ()?? 08/24/2022 01:30 Hemoglobin A1C (Monitoring) 4.9 % ()?? 08/21/2022 04:15 BUN 13 mg/dL ()?? 08/25/2022 04:41 Creatinine-Blood 0.6 mg/dL ()?? 08/25/2022 04:41 Estimated GFR Creatinine 103 ML/MIN/1.73 M2 ()?? 08/25/2022 04:41 Calcium 9.1 mg/dL ()?? 08/24/2022 01:30 Phosphorus 2.7 mg/dL ()?? 08/21/2022 04:15 Magnesium 1.8 mg/dL ()?? 08/25/2022 04:41 Protein, Total 6.1 Gm/dL (Low)?? 08/21/2022 04:15 Albumin 3.8 Gm/dL ()?? 08/21/2022 04:15 AG Ratio 1.7 ()?? 08/21/2022 04:15 Alkaline Phosphatase 87 units/L ()?? 08/21/2022 04:15 Lipase 36 units/L ()?? 08/20/2022 15:55 AST (SGOT) 60 units/L (High)?? 08/21/2022 04:15 ALT (SGPT) 29 units/L ()?? 08/21/2022 04:15 Bilirubin, Total 0.6 mg/dL ()?? 08/21/2022 04:15 Bilirubin, Direct <0.2 mg/dL ()?? 08/20/2022 15:55 Bilirubin, Indirect Direct bilirubin is less than the measureable limit. Therefore, indirect mg/dL ()?? 08/20/2022 15:55 Lactate 1.4 mmol/L ()?? 08/21/2022 04:15 ?? ENDOCRINE/TUMOR MARKER Serum Qual NEGATIVE mIU/mL ()?? 08/20/2022 15:55 ? LIPID STUDIES Cholesterol 171 mg/dL ()?? 08/21/2022 04:15 Triglycerides 69 mg/dL ()?? 08/21/2022 04:15 HDL Cholesterol 72 mg/dL ()?? 08/21/2022 04:15 LDL Cholesterol 85 mg/dL ()?? 08/21/2022 04:15 Non HDL Cholesterol 99 mg/dL ()?? 08/21/2022 04:15 ? VIROLOGY COVID-19 by RT-PCR NEGATIVE ()?? 08/20/2022 21:06 COVID-19 PCR Specimen Source NASAL ()?? 08/24/2022 05:52 COVID-19 PCR Result NEGATIVE ()?? 08/24/2022 05:52 ? Addendum: ?? Initial plan was for the patient to be discharged home today. However, she started having diarrhea this morning and up to 5-6 times this afternoon. No diarrhea yesterday. No nausea, vomiting or abdominal pain. She was on doxycycline before but it ended around the end of May. ?? Plan: Will get GI stool PCR and C-diff testing. Monitor S/S ?? DVT Px: Patient ambulatory, SCDs ordered. ?? Please regard this note as today's progress note. * Reinier Mckeon RN: VERIFY, PERFORM, SIGN Event Display: Progress Note Hospital Authored Date: Patient: DENI VIGIL Age: 57 years Sex: Female : 1965 Associated Diagnoses: None Author: Reinier Mckeon RN Findings Evaluation Pt A+ox4, denies cp/sob, palpitations, n/v, SR on tele, sats >95% RA. Right wrist dressing c/d/i, pulses present. Pt c/o diarrhea x2 today, provider made aware, no new orders at this time. Pt resting in bed at this time, call reyna within reach, please see biophysical for further assessment. . Deprecated Cardiac rehabilitation treatment plan Progress note and attainment of goals (narrative) * Liu MORENO, Itzel Negrete: PERFORM, SIGN, VERIFY Event Display: Cardiac Rehab Note Authored Date: Patient: DENI VIGIL Age: 57 years Sex: Female : 1965 Associated Diagnoses: None Author: Itzel Hatfield RN Pre-exercise Vitals Vital Signs Comment: Reviewed in [facility]. Pre-exercise Physical Examination Neurologic: alert & oriented. Activity Symptoms with Cardiac Rehab Symptoms: No exertional symptoms. Activity Ambulate: independent. Patient Education Education: Patient alone, Written material included, Takotsubo Cardiomyopathy. Education topic Teachback comprehension 75% Topic: Role of exercise, Home activity guidelines/limits. Recommendation and Plan Outpatient follow up recommended: [facility], with Noc Technician. Cardiac Rehab: Will sign off at this time. Portable XR Chest Views * GEORGINA Patel S: TRANSCRIHank Pruitt MD, V: VERIFY Event Display: Result: Authored Date: [id number] Chest Portable Hx of Present Illness: hest pain sob, initially on 10 L NRB.lethargic and diaohoretic. pains tartedaround 1430. pain radiates to back. given 324 mg ASA; Reason: Other:; Chest Pain; Clinical Question(s): Other: COMPARISON: 09/28/2009. FINDINGS: LINES AND TUBES: None. LUNGS AND PLEURA: Clear lungs. Normal pulmonary vascularity. No pleural effusion. No pneumothorax. HEART, MEDIASTINUM AND OTONIEL: Prominent cardiomediastinal silhouette which may be partly due to magnification. Normal mediastinal and hilar contour. BONES AND SOFT TISSUES: No acute abnormality. IMPRESSION: No definite acute cardiopulmonary disease is seen. WSN: [id number] Ordering Physician: Sandhya Ling Dictated By: Hank Mars MD, V Dictated Date/Time: 08/20/22 4:29 pm Reviewed By: Hank Mars MD, V Signed By: Hank Mars MD, V Signed Date/Time: 08/20/22 4:29 pm Transcribed By: BRAULIO Transcribed Date/Time: 08/20/22 4:28 pm CTA Abdominal vessels W contrast IV * MEGowerscparis , [facility] S: TRANSCRIConrado Watson MD S: VERIFY Event Display: Result: Authored Date: [id number] EXAMINATION: CT Angio Chest, CT Angio Abdomen INDICATION: Hx of Present Illness: chest pain sob, initially on 10 L NRB. Lethargic and diaphoretic. Pain started around 1430. Pain radiates to back. Given 324 mg ASA; Reason: Aortic disease, nontraumatic; Clinical Question(s): Aortic Dissection TECHNIQUE: An initial noncontrast CT of the chest was performed. Spiral CTA of the chest and abdomen was performed after rapid IV contrast administration without cardiac gating triggered by an ESTRELLITA onthe aorta. Images are formatted in multiple planes using 2-D multiplanar and 3-D maximum intensity projection. Obliqued images through the aortic root were reconstructed. 90 cc of Omnipaque 300 was administered intravenously. Weight-based protocol using automatic tube modulation was used to optimize exposure parameters. CTDIvol Body: 8.13 mGy, DLP Body: 396 mGy*cm. COMPARISONS: None. ANGIOGRAPHIC FINDINGS: No aortic dissection or aneurysm. Normal three vessel arch without branch vessel stenosis. Pulmonary arteries are normal in caliber. No evidence of central pulmonary embolism on this study performed without dedicated technique. Abdominal aorta: No aortic aneurysm or dissection. Celiac axis: Patent. Superior mesenteric artery: Patent. Right renal artery: Patent. Appears mildly beaded, for example see series 605 image 578. Accessory right lower pole renal artery. Left renal artery: Patent. Appears mildly beaded, for example see series 605 image 588. Inferior mesenteric artery: Patent. Visualized iliac arteries: Patent. NON-ANGIOGRAPHIC FINDINGS: Information Management Manager View Findings, Lines and Tubes: None. Trachea and Airways: Patent without evidence of tracheal or endobronchial lesion. Lungs and Pleura: Mild left basilar atelectasis. No effusion or pneumothorax. Mediastinum and otoniel: No mass or hematoma. No mediastinal or hilar lymphadenopathy. No esophageal abnormality. Heart: Mild cardiomegaly. No pericardial effusion. Chest Wall Soft Tissues: Normal. Diaphragm : No significant abnormality. Liver: Normal. Gallbladder: Absent consistent with prior cholecystectomy. Bile ducts: No biliary ductal dilation. Spleen: Normal. Pancreas: Normal. Adrenal glands: 1 cm benign left adrenal adenoma, not requiring further imaging evaluation. Kidneys and ureters: No hydronephrosis, stones, or suspicious masses. Stomach, small bowel, and large bowel: Visualized stomach and bowel are normal. Peritoneum and retroperitoneum: No ascites or pneumoperitoneum. No omental or mesenteric lesions. Lymph nodes: No enlarged lymph nodes. Abdominal wall: Unremarkable. Bones: No acute abnormality. IMPRESSION: 1. No aortic aneurysm or dissection. 2. Mild cardiomegaly. 3. Benign 1 cm left adrenal adenoma. No further imaging evaluation is recommended but consider biochemical workup to assess functional status. 4. Beaded appearance of the renal arteries, suggestive of fibromuscular dysplasia. WSN: [id number] Ordering Physician: Dennys Elias Dictated By: Conrado Villatoro MD Dictated Date/Time: 08/20/22 6:20 pm Reviewed By: Conrado Villatoro MD Signed By: Conrado Villatoro MD Signed Date/Time: 08/20/22 6:20 pm Transcribed By: BRAULIO Transcribed Date/Time: 08/20/22 6:11 pm CTA Chest vessels W contrast IV * BHSPowerscribe , CIS S: TRANSCRIBE Conrado Villatoro MD: VERIFY Event Display: Result: Authored Date: EXAMINATION: CT Angio Chest, CT Angio Abdomen INDICATION: Hx of Present Illness: chest pain sob, initially on 10 L NRB. Lethargic and diaphoretic. Pain started around 1430. Pain radiates to back. Given 324 mg ASA; Reason: Aortic disease, nontraumatic; Clinical Question(s): Aortic Dissection TECHNIQUE: An initial noncontrast CT of the chest was performed. Spiral CTA of the chest and abdomen was performed after rapid IV contrast administration without cardiac gating triggered by an ESTRELLITA onthe aorta. Images are formatted in multiple planes using 2-D multiplanar and 3-D maximum intensity projection. Obliqued images through the aortic root were reconstructed. 90 cc of Omnipaque 300 was administered intravenously. Weight-based protocol using automatic tube modulation was used to optimize exposure parameters. CTDIvol Body: 8.13 mGy, DLP Body: 396 mGy*cm. COMPARISONS: None. ANGIOGRAPHIC FINDINGS: No aortic dissection or aneurysm. Normal three vessel arch without branch vessel stenosis. Pulmonary arteries are normal in caliber. No evidence of central pulmonary embolism on this study performed without dedicated technique. Abdominal aorta: No aortic aneurysm or dissection. Celiac axis: Patent. Superior mesenteric artery: Patent. Right renal artery: Patent. Appears mildly beaded, for example see series 605 image 578. Accessory right lower pole renal artery. Left renal artery: Patent. Appears mildly beaded, for example see series 605 image 588. Inferior mesenteric artery: Patent. Visualized iliac arteries: Patent. NON-ANGIOGRAPHIC FINDINGS: Information Management Manager View Findings, Lines and Tubes: None. Trachea and Airways: Patent without evidence of tracheal or endobronchial lesion. Lungs and Pleura: Mild left basilar atelectasis. No effusion or pneumothorax. Mediastinum and otoniel: No mass or hematoma. No mediastinal or hilar lymphadenopathy. No esophageal abnormality. Heart: Mild cardiomegaly. No pericardial effusion. Chest Wall Soft Tissues: Normal. Diaphragm : No significant abnormality. Liver: Normal. Gallbladder: Absent consistent with prior cholecystectomy. Bile ducts: No biliary ductal dilation. Spleen: Normal. Pancreas: Normal. Adrenal glands: 1 cm benign left adrenal adenoma, not requiring further imaging evaluation. Kidneys and ureters: No hydronephrosis, stones, or suspicious masses. Stomach, small bowel, and large bowel: Visualized stomach and bowel are normal. Peritoneum and retroperitoneum: No ascites or pneumoperitoneum. No omental or mesenteric lesions. Lymph nodes: No enlarged lymph nodes. Abdominal wall: Unremarkable. Bones: No acute abnormality. IMPRESSION: 1. No aortic aneurysm or dissection. 2. Mild cardiomegaly. 3. Benign 1 cm left adrenal adenoma. No further imaging evaluation is recommended but consider biochemical workup to assess functional status. 4. Beaded appearance of the renal arteries, suggestive of fibromuscular dysplasia. WSN: [id number] Ordering Physician: Dennys Elias Dictated By: Conrado Villatoro MD Dictated Date/Time: 08/20/22 6:20 pm Reviewed By: Conrado Villatoro MD Signed By: Conrado Villatoro MD Signed Date/Time: 08/20/22 6:20 pm Transcribed By: BRAULIO Transcribed Date/Time: 08/20/22 6:11 pm Patient Care team information Care Team Personnel Name: Moni Modi Position: [facility] RN Supv Member Role: Primary Care Nurse Name: Conrado Triplett RN Position: S RN Member Role: Primary Care Nurse Name: Not on Staff, PCP Position: [facility] Physician (General Medicine) Member Role: PCP Name: *Lj GARCIA Attending Position: [facility] ED Medicine MD Name: Bailee Campos Position: [facility] ED TA [facility] Member Role: Lead Material Handler Name: Kendra Croft Position: [facility] ED OA Charge Member Role: ED Associate Name: Lore Abreu RN Position: [facility] ED RN W/OE and Tasks Member Role: Patient Care Provider Name: Juventino Bolton RN Position: [facility] ED RN W/OE and Tasks Member Role: Patient Care Provider Name: Sara Mcgowan Position: [facility] ED TA [facility] Member Role: Lead Material Handler Care Team Related Persons Name: DENNYS CORREA Address: [address] [address] Name: RAFI ESPINOZA
--- NOTE | 2023-10-31 01:45 | ED.GENADULT ---
HPI - General Adult General Chief complaint: Allergic Reaction Stated complaint: facial rash itchy painful Time Seen by Provider: 10/31/23 01:40 Source: patient, family (Patient's daughter) and RN notes reviewed Mode of arrival: ambulatory Limitations: no limitations History of Present Illness HPI narrative: 58-year-old female with past medical history significant for rosacea, sensitive skin presents for evaluation of rash to her face. Per the patient and her daughter, the rash started 2 days ago. Is very itchy and burning in nature. The patient denies any new soaps, lotions, detergents. She spends very little time outside and was not in the garden or anything. The rash seemed worse yesterday and improved today. She use topical Neosporin with minimal relief Denies any fevers or chills She does see Dermatology and at [facility] but has not been able to see them since this rash started She is also use an [id number] allergy medication that did not seem to help The rash is located to the face and upper neck only it does not spread throughout the body Related Data Previous Rx's ?Medication ?Instructions ?Recorded cephalexin 500 mg capsule 500 mg PO QID #28 caps 10/31/23 doxycycline hyclate 100 mg tablet 100 mg PO BID #14 tabs 10/31/23 Allergies Allergy/AdvReac Type Severity Reaction Status Date / Time morphine [MORPHINE] Allergy Unknown UNKNOWN Unverified 10/30/23 21:43 Review of Systems Constitutional: Constitutional: Denies body ache(s), Denies chills and Denies fever(s) Eyes: Eyes: Denies blurry vision ENT: Denies sore throat Cardiovascular: Cardiovascular: Denies chest pain and Denies dyspnea Respiratory: Respiratory: Denies cough and Denies dyspnea Gastrointestinal: Gastrointestinal: Denies abdominal pain, Denies nausea and Denies vomiting Integumentary/Breasts: Skin/Breast: Reports erythema, Reports rash and Denies wounds PMFSH Social History Social History Advance Directives: No Advance Directives Information Provided: No Do you have a plan to hurt others: No Plan Physical Exam ED Vital Signs: Vital Signs - 24 hr 10/30/23 21:39 Temperature 97.5 F Pulse Rate 74 Respiratory Rate 16 Blood Pressure 172/87 H Pulse Oximetry 98 Oxygen Delivery Method Room Air BMI result Body Mass Index 24.0 Const General: healthy appearing, comfortable, no acute distress, alert and awake Nutritional Appearance: well nourished Orientation/consciousness: patient oriented x3 HENMT Other: Erythematous maculopapular rash to the bilateral face, mostly around the cheeks. There is some involvement of the forehead but less so than the cheeks or rest of the face. The rash spares the infraorbital region but does affect the supraorbital region bilaterally. No open wounds or pustular drainage Head: Yes normocephalic and Yes atraumatic Throat: Yes posterior oropharynx normal and Yes other (No oral or perioral petechiae) Eyes Eyelids: Yes eyelids normal Conjunctivae: conjunctivae normal Sclerae: sclerae normal Corneas: corneas normal Pupils: Equal, round and reactive pupils present EOM: EOMs intact bilaterally (Without pain) Neck Neck: Yes full ROM Resp Effort & Inspection: normal respiratory effort, able to speak in complete sentences and not labored Skin General skin exam: elasticity normal Neuro General: patient oriented x3 Cranial nerves: Yes Equal, round and reactive pupils present and Yes Bilaterally intact EOM present Cognition (Neuro): normal cognition Extrem Other: Moving all extremities well without any obvious deformities Medical Decision Making Medical Decision Making MDM Narrative: Patient has an acute rash of the last 48 hours that is erythematous, maculopapular. She reports having history of similar in the past but not as severe. She has not had any new medications. She follows with dermatology due to her severely sensitive skin. My initial suspicion this is most likely an inflammatory rash however she states this is different than rashes she has had in the past. Will cover with cephalexin and doxycycline for cellulitis and she will treat with Benadryl as well. She will follow-up with dermatology, if this is not infectious, the Dermatology can deal with the inflammatory aspect. Differential Diagnosis Differential Diagnoses: The differential diagnosis associated with the presentation includes Facial rash Cellulitis Rosacea Dermatitis Contact dermatitis Discharge Plan Discharge Clinical Impression: Facial rash Patient Disposition: Home, Self-Care Instructions: Acute Rash (ED) Additional Instructions: Take Benadryl 25 mg every 4-6 hours as needed for itching and rash. Take cephalexin and doxycycline as prescribed Do not apply any products to your skin as this may exacerbate the rash Follow-up with your primary doctor as well as your mobile application architect Prescriptions: New cephalexin 500 mg capsule 500 mg PO QID Qty: 28 0RF doxycycline hyclate 100 mg tablet 100 mg PO BID Qty: 14 0RF Print Language: Cymro
[2023-10-31 02:15] VITALS: BP 169/85; PULSE 76; RESP 18; TEMP 36.6; O2SAT 97
[2023-10-31] MEDS: Doxycycline Monohydrate 100 MG CAPSULE PO (02:19)
[2023-10-31] MEDS: cephALEXin 500 MG CAPSULE PO (02:20)
[2023-10-31 02:22] VITALS: BP 180/86; PULSE 73; RESP 17; TEMP 37.1; O2SAT 97
[2023-10-31 02:24] VITALS: BP 180/86; PULSE 73; RESP 17; TEMP 37.1; O2SAT 97
== END 2023-10-31 02:25 | disposition home or self-care (01) ==
PROVIDERS: Emergency Provider Internal Medicine; PCP Family Medicine
DX: R21 Rash and other nonspecific skin eruption (principal)
CPT/HCPCS: 99283; 99284